=== PATIENT | male | born 1945 | race Native Hawaiian/Other Pacific Islander ===

== ENCOUNTER 2016-06-15 02:16 | Emergency (ER) | payer MEDICARE, OTHER ==
[~2016-06-15] VITALS: Ht 170.2 cm; Wt 75.0 kg
[~2016-06-15 02:16] MED LIST: AMAN100T PO; ASPI81 PO; BACL10TA PO; BISA5TAB PO; BRIM0.2S; IRON325T2 PO; NAPR220C2 PO; PRIL40CA PO; PROP1TAB67 PO; REQU2TAB3 PO; SINE10100 PO; TAB-TAB PO; VITA400C58 PO; ZOLO25TA PO
[2016-06-15 02:17] VITALS: BP 169/82; PULSE 71; RESP 18; TEMP 98.1; O2SAT 96
[2016-06-15] MEDS ORDERED: AMAN100C18 PO (02:28)
[2016-06-15] MEDS ORDERED: BRIM0.2S4 RIGHT EYE (02:28)
[2016-06-15] MEDS ORDERED: MULT1TAB85 PO (02:29)
[2016-06-15] MEDS ORDERED: CARB25TA12 PO (02:29)
[2016-06-15] MEDS ORDERED: ENTA1TAB PO (02:30)
[2016-06-15] MEDS ORDERED: TETANUS/DIPHTHERIA TOXOID ADULT 0.5 ML VIAL IM ONE (02:30)
[2016-06-15] MEDS ORDERED: GABA100C4 PO (02:30)
[2016-06-15] MEDS ORDERED: OMEP40CA2 PO (02:31)
[2016-06-15] MEDS ORDERED: SERT-132 PO (02:31)
[2016-06-15] MEDS ORDERED: GENTGEL EACH EYE (02:31)
[2016-06-15] MEDS ORDERED: ROPI2TAB PO (02:32)
[2016-06-15] MEDS ORDERED: ASPI81TA81 (02:32)
[2016-06-15] MEDS ORDERED: MEDI220T PO (02:33)
[2016-06-15] MEDS ORDERED: FLEE5TAB PO (02:33)
[2016-06-15] MEDS ORDERED: MILKSUS PO (02:33)
[2016-06-15] MEDS ORDERED: ACET325T PO (02:33)
--- NOTE | 2016-06-15 03:01 | RADRPT ---
EXAM DATE/TIME: 06/15/2016 02:37 [facility] COMPARISON: CT BRAIN W/O CONTRAST, July 20, 2015, 8:32. INDICATIONS : Fall. Right supraorbital contusion with laceration. RADIATION DOSE: 40.33 CTDIvol (mGy) MEDICAL HISTORY : Cardiovascular disease. Hypertension. Parkinsons. SURGICAL HISTORY : Appendectomy. Brain stimulator ENCOUNTER: Initial ACUITY: 1 day PAIN SCALE: 2/10 LOCATION: Left cranial TECHNIQUE: Multiple contiguous axial images were obtained of the head. Using automated exposure control and adj ustment of the mA and/or kV according to patient size, radiation dose was kept as low as reasonably a chievable to obtain optimal diagnostic quality images. FINDINGS: CEREBRUM: Neurostimulator leads are seen extending from the frontal regions towards the cerebral peduncles. The ventricles and cortical sulci are mildly widened. No evidence of midline shift, mass lesion, hemorr barbi or acute infarction. No extra-axial fluid collections are seen. POSTERIOR FOSSA: The cerebellum and brainstem are intact. The 4th ventricle is midline. The cerebellopontine angle i s unremarkable. EXTRACRANIAL: The visualized portion of the orbits is intact. There is right frontal scalp swelling.. SKULL: The calvaria is intact. No evidence of skull fracture. CONCLUSION: 1. No acute intracranial abnormality. 2. Right frontal scalp swelling. Jose Thorne MD on June 15, 2016 at 2:58 Board Certified Radiologist. This report was verified electronically.
--- NOTE | 2016-06-15 03:13 | PD ---
HPI Chief Complaint: Laceration/Skin Injury Time Seen by Provider: 02:20 Travel History International Travel<30 days: No Contact w/Intl Traveler<30days: No Traveled to known affect area: No History of Present Illness HPI The patient 70 years old. He arrives after an accidental fall out of bed. Reportedly he rolled over and then fell to the ground. He struck his right forehead/supraorbital ridge upon the ground causing a laceration bleeding. Sudden onset constant burning pain also reported. No loss of consciousness, visual change, nausea or vomiting. Patient takes aspirin. He is not sure of when he most recently received a tetanus shot. PFSH Past Medical History Cancer: No Cardiovascular Problems: Yes High Cholesterol: Yes Endocrine: No Gastrointestinal Disorders: Yes Genitourinary: No Hypertension: Yes Implanted Vascular Access Dvce: Yes Medical other: Yes (last week brainstimulator battery changed) Musculoskeletal: Yes Neurologic: No Parkinson's Disease: Yes Psychiatric: No Reproductive: No Respiratory: No Tetanus Vaccination: Unknown Influenza Vaccination: No Past Surgical History Appendectomy: Yes Body Medical Devices: BRAIN STIMULATOR Eye Surgery: Yes (LASER SURGERY TODAY ON RIGHT EYE) Neurologic Surgery: Yes (BACK SURGERY X2, BRAIN STIMUALTOR) Other Surgery: Yes Social History Alcohol Use: No Tobacco Use: No Substance Use: No Allergies-Medications (Allergen,Severity, Reaction): Coded Allergies: No Known Allergies (Verified , 06/15/16) Reported Meds & Prescriptions Reported Meds & Active Scripts Active Reported Naproxen Sodium 220 Mg Tab 220 Mg PO BID PRN Milk of Magnesia Liq (Magnesium Hydroxide) 400 Mg/5 Ml Susp 60 Ml PO DAILY PRN Bisacodyl EC (Bisacodyl) 5 Mg Tabec 5 Mg PO DAILY PRN Acetaminophen 325 Mg Tab 325 Mg PO Q4-6H PRN Ropinirole 2 Mg Tab 2 Mg PO BID Aspir-81 (Aspirin) 81 Mg Tabdr Sertraline (Sertraline HCl) 50 Mg Tab 50 Mg PO DAILY Omeprazole 40 Mg Cap 40 Mg PO DAILY Genteal Opth Gel (Carboxymethylcellu Sod/Hypromellose) 0.25-0.3% Gel 2 Drop EACH EYE Q4H PRN Gabapentin 100 Mg Cap 100 Mg PO BID Entacapone 200 Mg Tab 200 Mg PO BID administered concomitantly with each levodopa/carbidopa dose Multivitamin Men (Multiple Vitamins W/ Minerals) 1 Tab Tab 1 Tab PO DAILY Carbidopa-Levodopa 25-250 Mg Tab 1 Tab PO Q8HR Brimonidine Opth Drops (Brimonidine Tartrate) 0.2% Soln 1 Drop RIGHT EYE BID Amantadine (Amantadine HCl) 100 Mg Cap 100 Mg PO TID Review of Systems Except as stated in HPI: all other systems reviewed are Neg Physical Exam Narrative GENERAL: 70 yo M, well-nourished well-developed, no acute distress SKIN: Warm and dry. HEAD: Minimal contusion about the supraorbital ridge. Normocephalic. EYES: Pupils equal and round. No scleral icterus. No injection or drainage. On the superior aspect of the right upper eyelid laterally there is a 2 cm linear horizontal laceration approximately 2 mm wide and about 5 mm deep. ENT: No nasal bleeding or discharge. Mucous membranes pink and moist. NECK: Trachea midline. No JVD. CARDIOVASCULAR: Regular rate and rhythm. No murmur appreciated. RESPIRATORY: No accessory muscle use. Clear to auscultation. Breath sounds equal bilaterally. GASTROINTESTINAL: Abdomen soft, non-tender, nondistended. Hepatic and splenic margins not palpable. MUSCULOSKELETAL: No obvious deformities. No clubbing. No cyanosis. No edema. NEUROLOGICAL: Awake and alert. No obvious cranial nerve deficits. Motor grossly within normal limits. Normal speech. PSYCHIATRIC: Appropriate mood and affect; insight and judgment normal. Data Data Last Documented VS Vital Signs Date Time Temp Pulse Resp B/P Pulse Ox O2 Delivery O2 Flow Rate FiO2 06/15/16 02:17 98.1 71 18 169/[address] Brain W/O Iv Contrast(Rout) (06/15/16 02:20) Tetanus/Diphtheria Tox Adult (Tetanus/Di (06/15/16 02:30) MDM Medical Decision Making Medical Screen Exam Complete: Yes Emergency Medical Condition: Yes Medical Record Reviewed: Yes Differential Diagnosis Intracranial hemorrhage, contusion, laceration Narrative Course Last [address] 06/15/16 0220 Signed Impressions: Service Date/Time: May 02:37 - CONCLUSION: 1. No acute intracranial abnormality. 2. Right frontal scalp swelling. Jose Thorne MD Right upper eyelid laceration repaired w Dermabond by the undersigned. Pt has rested comfortably throughout ER stay. He is ready for discharge. Diagnosis Primary Impression: Fall Qualified Code: W19.XXXA - Fall, initial encounter Additional Impressions: Contusion Qualified Code: S00.03XA - Contusion of scalp, initial encounter Eyelid laceration, right Qualified Code: S01.111A - Eyelid laceration, right, initial encounter Referrals: Luz Dillon MD 1 day Additional Instructions: You have a choice when it comes to health care, and we are glad that you chose [facility]. Hopefully, we have met your expectations on today's visit. You are welcome to return to [facility] at any time, as we are committed to meeting the health care needs of our community. Med/Other Pt SpecificInfo: No Change to Meds Disposition: 01 DISCHARGE HOME Condition: Sergio Garrett MD Jun 15, 2016 03:12
== END 2016-06-15 06:36 | disposition home or self-care (01) ==
LOC: NEPC 02:16
DX: S01.111A Laceration without foreign body of right eyelid and periocular area, initial encounter (principal); S00.03XA Contusion of scalp, initial encounter; I10 Essential (primary) hypertension; G20 Parkinson's disease; E78.00 Pure hypercholesterolemia, unspecified; Z23 Encounter for immunization; Z79.82 Long term (current) use of aspirin; Z86.79 Personal history of other diseases of the circulatory system; Z87.19 Personal history of other diseases of the digestive system; Z87.39 Personal history of other diseases of the musculoskeletal system and connective tissue; W06.XXXA Fall from bed, initial encounter
CPT/HCPCS: 12011; 70450; 90471; 90714

== ENCOUNTER 2017-07-20 14:28 | Inpatient (IN) | payer MEDICARE, MEDICAID ==
[~2017-07-20] VITALS: Ht 170.2 cm; Wt 72.0 kg
[~2017-07-20 14:28] MED LIST changes: +ACET325T PO; +AMAN100C18 PO; -AMAN100T PO; -ASPI81 PO; +ASPI81TA81; -BACL10TA PO; -BISA5TAB PO; -BRIM0.2S; +BRIM0.2S4 RIGHT EYE; +CARB25TA12 PO; +ENTA1TAB PO; +FLEE5TAB PO; +GABA100C4 PO; +GENTGEL EACH EYE; -IRON325T2 PO; +MEDI220T PO; +MILKSUS PO; +MULT1TAB85 PO; -NAPR220C2 PO; +OMEP40CA2 PO; -PRIL40CA PO; -PROP1TAB67 PO; -REQU2TAB3 PO; +ROPI2TAB PO; +SERT-132 PO; -SINE10100 PO; -TAB-TAB PO; -VITA400C58 PO; -ZOLO25TA PO
[2017-07-20 14:41] VITALS: BP 116/56; PULSE 82; RESP 20; TEMP 98.1; O2SAT 99
--- NOTE | 2017-07-20 14:43 | PD ---
HPI Chief Complaint: General Weakness Time Seen by Provider: 14:42 Travel History International Travel<30 days: No Contact w/Intl Traveler<30days: No Traveled to known affect area: No History of Present Illness HPI 71-year-old male with history of Parkinson's disease, hypertension, presents emergency department from his residential facility for evaluation of altered mental status and a low hemoglobin on today's labs. The patient is accompanied by his who states that he has been acting differently over the last 2 days. Patient is a poor historian. He is very difficult to understand. He does tell me he has upper abdominal pain. He has had no fever or chills. His states he has been eating less and losing weight. He has not been vomiting. He has not had f difficulty with bowel movements or voids. It is unknown if the patient has had black tarry or shorty red stools. No other symptoms to report. PFSH Past Medical History Cancer: No Cardiovascular Problems: Yes High Cholesterol: Yes Endocrine: No Gastrointestinal Disorders: Yes Genitourinary: No Hypertension: Yes Implanted Vascular Access Dvce: Yes Musculoskeletal: Yes Neurologic: No Parkinson's Disease: Yes Psychiatric: No Reproductive: No Respiratory: No Past Surgical History Appendectomy: Yes Body Medical Devices: BRAIN STIMULATOR Eye Surgery: Yes (LASER SURGERY TODAY ON RIGHT EYE) Neurologic Surgery: Yes (BACK SURGERY X2, BRAIN STIMUALTOR) Other Surgery: Yes Social History Alcohol Use: No Tobacco Use: No Substance Use: No Allergies-Medications (Allergen,Severity, Reaction): Coded Allergies: No Known Allergies (Verified Allergy, Unknown, 07/20/17) Reported Meds & Prescriptions Reported Meds & Active Scripts Active Reported Flagyl (Metronidazole) 250 Mg Tab 250 Mg PO Q8HR Zantac (Ranitidine HCl) 150 Mg Tab 150 Mg PO BID [maalox suspension ] PO Q12HR Jordan (Hydrocodone-Acetaminophen) 5 Mg-325 Mg Tab 1 Tab PO BID Tums (Calcium Carbonate (Antacid)) 500 Mg Chew 500 Mg CHEW TID PRN Lisinopril 2.5 Mg Tab 2.5 Mg PO DAILY Multiple Vitamin 1 Tab 1 Tab PO DAILY Amantadine (Amantadine HCl) 100 Mg Tab 100 Mg PO DAILY Miralax Powder (Polyethylene Glycol 3350 Powder) 17 Gm Powd 17 Gm PO HS Mix and dissolve one measuring cap-ful (17 grams) in water or juice. Docusate Sodium 100 Mg Cap 100 Mg PO BID Ropinirole 2 Mg Tab 2 Mg PO BID Aspir-81 (Aspirin) 81 Mg Tabdr Sertraline (Sertraline HCl) 50 Mg Tab 50 Mg PO DAILY Omeprazole 40 Mg Cap 40 Mg PO DAILY Gabapentin 100 Mg Cap 300 Mg PO Q8HR Entacapone 200 Mg Tab 200 Mg PO DAILY administered concomitantly with each levodopa/carbidopa dose Carbidopa-Levodopa 25-250 Mg Tab 1 Tab PO Q8HR Review of Systems Except as stated in HPI: all other systems reviewed are Neg Physical Exam Narrative GENERAL: Well-nourished male patient, lying in bed, in no acute distress. SKIN: Focused skin assessment warm/dry. HEAD: Atraumatic. Normocephalic. EYES: Pupils equal and round. No scleral icterus. No injection or drainage. ENT: No nasal bleeding or discharge. Mucous membranes pink and moist. NECK: Trachea midline. No JVD. CARDIOVASCULAR: Regular rate and rhythm. No murmur appreciated. RESPIRATORY: No accessory muscle use. Clear to auscultation. Breath sounds equal bilaterally. GASTROINTESTINAL: Abdomen soft, nondistended. Epigastric tenderness to palpation. Hepatic and splenic margins not palpable. RECTAL EXAM: No masses no masses. Slight tenderness. Stool is black. MUSCULOSKELETAL: No obvious deformities. No clubbing. No cyanosis. No edema. NEUROLOGICAL: Awake and alert. No obvious cranial nerve deficits. Motor grossly within normal limits. Difficult to understand speech. Data Data Last Documented VS Vital Signs Date Time Temp Pulse Resp B/P (MAP) Pulse Ox O2 Delivery O2 Flow Rate FiO2 07/20/17 15:33 Room Air 07/20/17 14:43 80 20 99 07/20/17 14:41 98.1 116/56 (76) Orders Orders Complete Blood Count With Diff (07/20/17 14:52) Comprehensive Metabolic Panel (07/20/17 14:52) Lipase (07/20/17 14:52) Prothrombin Time / Inr (Pt) (07/20/17 14:52) Act Partial Throm Time (Ptt) (07/20/17 14:52) Urinalysis - C+S If Indicated (07/20/17 14:52) Type And Screen (07/20/17 14:52) Ecg Monitoring (07/20/17 14:52) Iv Access Insert/Monitor (07/20/17 14:52) Oximetry (07/20/17 14:52) Pantoprazole Inj (Protonix Inj) (07/20/17 15:00) Sodium Chloride 0.9% Flush (Ns Flush) (07/20/17 15:00) Sodium Chloride 0.9... W/Pantoprazole In (07/20/17 15:53) Red Blood Cells (Rbc) (07/20/17 15:53) Blood Product Administration (07/20/17 15:53) Sodium Chlor 0.9% 250 Ml Inj (Ns 250 Ml (07/20/17 16:00) Labs Laboratory Tests Test 07/20/17 14:10 White Blood Count 13.0 TH/MM3 Red Blood Count 2.38 MIL/MM3 Hemoglobin 7.0 GM/DL Hematocrit 20.9 % Mean Corpuscular Volume 87.8 FL Mean Corpuscular Hemoglobin 29.5 PG Mean Corpuscular Hemoglobin Concent 33.6 % Red Cell Distribution Width 14.5 % Platelet Count 383 TH/MM3 Mean Platelet Volume 8.1 FL Neutrophils (%) (Auto) 73.5 % Lymphocytes (%) (Auto) 17.7 % Monocytes (%) (Auto) 8.3 % Eosinophils (%) (Auto) 0.2 % Basophils (%) (Auto) 0.3 % Neutrophils # (Auto) 9.5 TH/MM3 Lymphocytes # (Auto) 2.3 TH/MM3 Monocytes # (Auto) 1.1 TH/MM3 Eosinophils # (Auto) 0.0 TH/MM3 Basophils # (Auto) 0.0 TH/MM3 CBC Comment DIFF FINAL Differential Comment Prothrombin Time 10.7 SEC Prothromb Time International Ratio 1.1 RATIO Activated Partial Thromboplast Time 27.1 SEC Blood Urea Nitrogen 30 MG/DL Creatinine 1.11 MG/DL Random Glucose 119 MG/DL Total Protein 7.2 GM/DL Albumin 3.0 GM/DL Calcium Level 8.6 MG/DL Alkaline Phosphatase 57 U/L Aspartate Amino Transf (AST/SGOT) 17 U/L Alanine Aminotransferase (ALT/SGPT) 9 U/L Total Bilirubin 0.4 MG/DL Sodium Level 139 MEQ/L Potassium Level 3.9 MEQ/L Chloride Level 105 MEQ/L Carbon Dioxide Level 26.3 MEQ/L Anion Gap 8 MEQ/L Estimat Glomerular Filtration Rate 65 ML/MIN Lipase 67 U/L [facility] Medical Decision Making Medical Screen Exam Complete: Yes Emergency Medical Condition: Yes Medical Record Reviewed: Yes Differential Diagnosis GI bleed versus electrolyte abnormality versus intracranial etiology Narrative Course 71-year-old male presents emergency department for evaluation of altered mental status and a low hemoglobin. Patient appears nontoxic. His vital signs are stable. He does have Hemoccult positive stool that is black. Patient reports epigastric pain. Protonix drip is started. Lab work is drawn. Laboratory Tests Test 07/20/17 14:10 White Blood Count 13.0 TH/MM3 Red Blood Count 2.38 MIL/MM3 Hemoglobin 7.0 GM/DL Hematocrit 20.9 % Mean Corpuscular Volume 87.8 FL Mean Corpuscular Hemoglobin 29.5 PG Mean Corpuscular Hemoglobin Concent 33.6 % Red Cell Distribution Width 14.5 % Platelet Count 383 TH/MM3 Mean Platelet Volume 8.1 FL Neutrophils (%) (Auto) 73.5 % Lymphocytes (%) (Auto) 17.7 % Monocytes (%) (Auto) 8.3 % Eosinophils (%) (Auto) 0.2 % Basophils (%) (Auto) 0.3 % Neutrophils # (Auto) 9.5 TH/MM3 Lymphocytes # (Auto) 2.3 TH/MM3 Monocytes # (Auto) 1.1 TH/MM3 Eosinophils # (Auto) 0.0 TH/MM3 Basophils # (Auto) 0.0 TH/MM3 CBC Comment DIFF FINAL Differential Comment Prothrombin Time 10.7 SEC Prothromb Time International Ratio 1.1 RATIO Activated Partial Thromboplast Time 27.1 SEC Blood Urea Nitrogen 30 MG/DL Creatinine 1.11 MG/DL Random Glucose 119 MG/DL Total Protein 7.2 GM/DL Albumin 3.0 GM/DL Calcium Level 8.6 MG/DL Alkaline Phosphatase 57 U/L Aspartate Amino Transf (AST/SGOT) 17 U/L Alanine Aminotransferase (ALT/SGPT) 9 U/L Total Bilirubin 0.4 MG/DL Sodium Level 139 MEQ/L Potassium Level 3.9 MEQ/L Chloride Level 105 MEQ/L Carbon Dioxide Level 26.3 MEQ/L Anion Gap 8 MEQ/L Estimat Glomerular Filtration Rate 65 ML/MIN Lipase 67 U/L Patient's hemoglobin is 7. 1 unit packed red blood cells as ordered here in the emergency department for transfusion. Patient will be admitted to the hospitalist service for further evaluation. Diagnosis Primary Impression: GI bleed Qualified Codes: K92.2 - Gastrointestinal hemorrhage, unspecified Admitting Information Admitting Physician Requests: Observation Condition: Stable Ruthy Holland Jul 20, 2017 14:43
[2017-07-20] MEDS ORDERED: SODIUM CHLORIDE 0.9% FLUSH 10 ML FLUSH IVF PRN (15:00)
[2017-07-20] MEDS ORDERED: PANTOPRAZOLE SODIUM 40 MG VIAL IVP ONE (15:00)
[2017-07-20 15:39] LABS: AUTOMATED NEUTROPHIL # 9.5 TH/MM3 (1.8-7.7); BASOPHIL % 0.3 % (0.0-2.0); EOSINOPHIL % 0.2 % (0.0-4.0); LYMPH % 17.7 % (9.0-44.0); LYMPHOCYTE # 2.3 TH/MM3 (1.0-4.8); MEAN CELL VOLUME 87.8 FL (80.0-100.0); MEAN CORPUSCULAR HEMOGLOBIN 29.5 PG (27.0-34.0); MEAN CORPUSCULAR HGB CONC 33.6 % (32.0-36.0); MEAN PLATELET VOLUME 8.1 FL (7.0-11.0); MONO % 8.3 % (0.0-8.0); MONOCYTE # 1.1 TH/MM3 (0-0.9); NEUT % 73.5 % (16.0-70.0); PLATELET COUNT 383 TH/MM3 (150-450); RED BLOOD COUNT 2.38 MIL/MM3 (4.50-5.90); RED CELL DISTRIBUTION WIDTH 14.5 % (11.6-17.2)
[2017-07-20] MEDS ORDERED: LISI2.5T3 PO (15:50)
[2017-07-20] MEDS ORDERED: AMAN100T PO (15:50)
[2017-07-20] MEDS ORDERED: MAALOX PO (15:50)
[2017-07-20] MEDS ORDERED: NORC5TAB PO (15:50)
[2017-07-20] MEDS ORDERED: DOCU100C15 PO (15:50)
[2017-07-20] MEDS ORDERED: MIRA3350 PO (15:50)
[2017-07-20] MEDS ORDERED: METR250 PO (15:50)
[2017-07-20] MEDS ORDERED: ZANT150T2 PO (15:50)
[2017-07-20] MEDS ORDERED: TUMS500C CHEW (15:50)
[2017-07-20] MEDS ORDERED: MULTTAB67 PO (15:50)
[2017-07-20 15:53] LABS: HEMATOCRIT 20.9 % (39.0-51.0)
[2017-07-20] MEDS ORDERED: PANTOPRAZOLE INJ 80 MG in SODIUM CHLORIDE 0.9% INJ 100 ML IV SCH (15:53)
[2017-07-20 15:54] LABS: INTERNATIONAL NORMALIZED RATIO 1.1 RATIO; PROTHROMBIN TIME - PATIENT 10.7 SEC (9.8-11.6)
[2017-07-20 15:56] LABS: AST (GOT) 17 U/L (15-37); BICARBONATE 26.3 MEQ/L (21.0-32.0); BLOOD UREA NITROGEN 30 MG/DL (7-18); CALCIUM 8.6 MG/DL (8.5-10.1); CHLORIDE 105 MEQ/L (98-107); CREATININE 1.11 MG/DL (0.60-1.30); GLOMERULAR FILTRATION RATE 65 ML/MIN (>89); GLUCOSE,RANDOM 119 MG/DL (74-106); SODIUM (NA) 139 MEQ/L (136-145)
[2017-07-20 15:57] LABS: ALT (GPT) 9 U/L (12-78)
[2017-07-20 15:59] LABS: ALKALINE PHOSPHATASE 57 U/L (45-117); TOTAL BILIRUBIN ADULT 0.4 MG/DL (0.2-1.0); TOTAL PROTEIN 7.2 GM/DL (6.4-8.2)
[2017-07-20] MEDS ORDERED: SODIUM CHLOR 0.9% 250 ML INJ 250 ML IV ONE (16:00)
[2017-07-20 17:21] VITALS: BP 100/54; PULSE 77; RESP 12; TEMP 98.5; O2SAT 98
[2017-07-20 17:35] VITALS: BP 97/59; PULSE 77; RESP 18; TEMP 98.4; O2SAT 99
[2017-07-20] MEDS ORDERED: SODIUM CHLOR 0.9% 1000 ML INJ 1,000 ML IV SCH (17:39)
[2017-07-20] MEDS ORDERED: SENNOSIDES 8.6 MG TAB PO PRN (17:45)
[2017-07-20] MEDS ORDERED: LACTULOSE SYRUP 20 GM/30 ML CUP PO PRN (17:45)
[2017-07-20] MEDS ORDERED: MAGNESIUM HYDROXIDE SUSP 30 ML CUP PO PRN (17:45)
[2017-07-20] MEDS ORDERED: NALOXONE HCL 0.4 MG/ML AMP IV PUSH PRN (17:45)
[2017-07-20] MEDS ORDERED: BISACODYL 10 MG SUPP RECTAL PRN (17:45)
[2017-07-20] MEDS ORDERED: ACETAMINOPHEN 325 MG TAB PO PRN (17:45)
[2017-07-20] MEDS ORDERED: SODIUM CHLORIDE 0.9% FLUSH 10 ML FLUSH IV FLUSH PRN (17:45)
[2017-07-20] MEDS ORDERED: ONDANSETRON HCL 4 MG/2 ML VIAL IVP PRN (17:45)
--- NOTE | 2017-07-20 17:59 | HHI.HP ---
HPI Service [facility] Primary Care Physician Popeye Mesa MD Admission Diagnosis AMS; GI BLEED Diagnoses: Chief Complaint: Acute GI bleed Travel History International Travel<30 Days: No Contact w/Intl Traveler <30 Da: No Traveled to Known Affected Are: No History of Present Illness Written by Moshe Solomon, acting as scribe for Dr. Bingham on 07/20/17 at 17:42. Patient is a 71 year old male who is a resident of a [facility]dc with primary medical history of severe Parkinson's disease with brain stimulator, HTN, HLD, chronic back pain who came into the hospital for evaluation of altered mental status and low hemoglobin on today's labs. Patient seen and examined today. States he came to the hospital because he has blood in his stool. Patient speech is severely garbled and barely understandable. States that his speech has been worsened by his Parkinson's disease. Most of the history is reviewed from prior visit to the hospital and collateral with other staff. Patient complains of abdominal pain 5/10, burning sensation, does not know what aggravates or relieves the pain. It does not radiate anywhere. Denies SOB/ dyspnea. Denies chest pain, palpitations, headaches, dizziness. Denies fevers, chills, n/v/d. Denies dysuria. Review of Systems Except as stated in HPI: all other systems reviewed are Neg Past Family Social History Past Medical History Pulled from EMR, as instructed by [facility] Parkinson's disease, history of deep brain stimulator High cholesterol Hypertension Chronic back pain with prior back surgeries Past Surgical History Pulled from EMR, as instructed by [facility] EGD/colonoscopy Fusion of his low back at L1 S1 Removal of a benign cyst of his lumbar spine Reported Medications Reported Meds & Active Scripts Active Reported Flagyl (Metronidazole) 250 Mg Tab 250 Mg PO Q8HR Zantac (Ranitidine HCl) 150 Mg Tab 150 Mg PO BID [maalox suspension ] PO Q12HR [place] (Hydrocodone-Acetaminophen) 5 Mg-325 Mg Tab 1 Tab PO BID Tums (Calcium Carbonate (Antacid)) 500 Mg Chew 500 Mg CHEW TID PRN Lisinopril 2.5 Mg Tab 2.5 Mg PO DAILY Multiple Vitamin 1 Tab 1 Tab PO DAILY Amantadine (Amantadine HCl) 100 Mg Tab 100 Mg PO DAILY Miralax Powder (Polyethylene Glycol 3350 Powder) 17 Gm Powd 17 Gm PO HS Mix and dissolve one measuring cap-ful (17 grams) in water or juice. Docusate Sodium 100 Mg Cap 100 Mg PO BID Ropinirole 2 Mg Tab 2 Mg PO BID Aspir-81 (Aspirin) 81 Mg Tabdr Sertraline (Sertraline HCl) 50 Mg Tab 50 Mg PO DAILY Omeprazole 40 Mg Cap 40 Mg PO DAILY Gabapentin 100 Mg Cap 300 Mg PO Q8HR Entacapone 200 Mg Tab 200 Mg PO DAILY administered concomitantly with each levodopa/carbidopa dose Carbidopa-Levodopa 25-250 Mg Tab 1 Tab PO Q8HR Allergies: Coded Allergies: No Known Allergies (Verified Allergy, Unknown, 07/20/17) Active Ordered Medications Current Medications Medications (Trade) Dose Ordered Sig/Gina Route Start Time Stop Time Status Last Admin (NS Flush) 2 ml UNSCH PRN IVF 07/20/17 15:00 07/20/17 15:09 Pantoprazole Sodium 80 mg/ Sodium Chloride 100 ml @ 10 mls/hr Q10H IV 07/20/17 15:53 07/20/17 17:06 Sodium Chloride 250 ml @ 15 mls/hr ONCE ONCE IV 07/20/17 16:00 07/21/17 08:39 07/20/17 17:23 Family History Pulled from EMR, as instructed by [facility]. Father coronary artery bypass grafting at the age of 78, mother with congestive heart failure. One brother with hypertension other siblings are healthy Social History Denies alcohol use Denies tobacco use Denies illicit drug use Physical Exam Vital Signs Vital Signs Date Time Temp Pulse Resp B/P (MAP) Pulse Ox O2 Delivery O2 Flow Rate FiO2 07/20/17 17:35 98.4 77 18 97/59 99 07/20/17 17:21 98.5 77 12 100/54 98 07/20/17 15:33 Room Air 07/20/17 14:43 80 20 99 Room Air 07/20/17 14:41 98.1 82 20 116/56 (76) 99 Physical Exam GENERAL: This is a well-nourished, well-developed patient, in no apparent distress. SKIN: Warm and dry. HEAD: Normocephalic. No temporal or scalp tenderness. EYES: Pupils equal round and reactive. Extraocular motions intact. No scleral icterus. No injection or drainage. ENT: Nose without bleeding. Throat without erythema. Uvula midline. Airway patent. NECK: Trachea midline. CARDIOVASCULAR: Regular rate and rhythm without murmurs, gallops, or rubs. RESPIRATORY: Clear to auscultation. Breath sounds equal bilaterally. No wheezes , rales, or rhonchi. GASTROINTESTINAL: Abdomen soft, nondistended. Mild tenderness to palpate midepigastric region bowel sounds active 4 MUSCULOSKELETAL: Extremities without clubbing, cyanosis, or edema. Stiff with ROM. NEUROLOGICAL: Awake and alert. Motor and sensory grossly within normal limits. Garbled speech. Laboratory Laboratory Tests Test 07/20/17 14:10 White Blood Count 13.0 Red Blood Count 2.38 Hemoglobin 7.0 Hematocrit 20.9 Mean Corpuscular Volume 87.8 Mean Corpuscular Hemoglobin 29.5 Mean Corpuscular Hemoglobin Concent 33.6 Red Cell Distribution Width 14.5 Platelet Count 383 Mean Platelet Volume 8.1 Neutrophils (%) (Auto) 73.5 Lymphocytes (%) (Auto) 17.7 Monocytes (%) (Auto) 8.3 Eosinophils (%) (Auto) 0.2 Basophils (%) (Auto) 0.3 Neutrophils # (Auto) 9.5 Lymphocytes # (Auto) 2.3 Monocytes # (Auto) 1.1 Eosinophils # (Auto) 0.0 Basophils # (Auto) 0.0 CBC Comment DIFF FINAL Differential Comment Prothrombin Time 10.7 Prothromb Time International Ratio 1.1 Activated Partial Thromboplast Time 27.1 Blood Urea Nitrogen 30 Creatinine 1.11 Random Glucose 119 Total Protein 7.2 Albumin 3.0 Calcium Level 8.6 Alkaline Phosphatase 57 Aspartate Amino Transf (AST/SGOT) 17 Alanine Aminotransferase (ALT/SGPT) 9 Total Bilirubin 0.4 Sodium Level 139 Potassium Level 3.9 Chloride Level 105 Carbon Dioxide Level 26.3 Anion Gap 8 Estimat Glomerular Filtration Rate 65 Lipase 67 Result Diagram: 07/20/17 1410 07/20/17 1410 Caprini VTE Risk Assessment Caprini VTE Risk Assessment: Mod/High Risk (score >= 2) VTE Pharm Contraindication: Active bleeding Caprini Risk Assessment Model Point Value = 1 Point Value = 2 Point Value = 3 Point Value = 5 Age 41-60 Minor surgery BMI > 25 kg/m2 Swollen legs Varicose veins or History of unexplained or recurrent spontaneous Oral contraceptives or hormone replacement Sepsis (< 1 month) Serious lung disease, including pneumonia (< 1 month) Abnormal pulmonary function Acute myocardial infarction Congestive heart failure (< 1 month) History of inflammatory bowel disease Medical patient at bed rest Age 61-74 Arthroscopic surgery Major open surgery (> 45 min) Laparoscopic surgery (> 45 min) Malignancy Confined to bed (> 72 hours) Immobilizing plaster cast Central venous access Age >= 75 History of VTE Family history of VTE Factor V Leiden Prothrombin [id number] Lupus anticoagulant Anticardiolipin antibodies Elevated serum homocysteine Heparin-induced thrombocytopenia Other congenital or acquired thrombophilia Stroke (< 1 month) Elective arthroplasty Hip, pelvis, or leg fracture Acute spinal cord injury (< 1 month) Prophylaxis Regimen Total Risk Factor Score Risk Level Prophylaxis Regimen 0-1 Low Early ambulation 2 Moderate Order ONE of the following: *Sequential Compression Device (SCD) *Heparin 5000 units SQ BID 3-4 Higher Order ONE of the following medications: *Heparin 5000 units SQ TID *Enoxaparin/Lovenox 40 mg SQ daily (WT < 150 kg, CrCl > 30 mL/min) *Enoxaparin/Lovenox 30 mg SQ daily (WT < 150 kg, CrCl > 10-29 mL/min) *Enoxaparin/Lovenox 30 mg SQ BID (WT < 150 kg, CrCl > 30 mL/min) AND/OR *Sequential Compression Device (SCD) 5 or more Highest Order ONE of the following medications: *Heparin 5000 units SQ TID (Preferred with Epidurals) *Enoxaparin/Lovenox 40 mg SQ daily (WT < 150 kg, CrCl > 30 mL/min) *Enoxaparin/Lovenox 30 mg SQ daily (WT < 150 kg, CrCl > 10-29 mL/min) *Enoxaparin/Lovenox 30 mg SQ BID (WT < 150 kg, CrCl > 30 mL/min) AND *Sequential Compression Device (SCD) Assessment and Plan Problem List: (1) GI bleed ICD Code: K92.2 - Gastrointestinal hemorrhage, unspecified Status: Acute (2) Parkinson disease ICD Code: G20 - Parkinson's disease Status: Acute (3) Hypertension ICD Code: I10 - Essential (primary) hypertension Status: Acute Assessment and Plan Patient is a 71 year old male who is a resident of a fdc with primary medical history of severe Parkinson's disease with brain stimulator, HTN, HLD, chronic back pain who came into the hospital for evaluation of altered mental status and low hemoglobin on today's labs. GI bleed -H&H 7.0/20.9 -Check stool for heme -GI consult appreciated recommend a -Protonix IV, 1 unit packed RBC, may need 2 units -Keep n.p.o. for now -IV fluids for hydration, avoid NSAIDs, aspirin -Monitor CBC Parkinson's disease -Severe parkinsonism, brain stimulator in place battery on the right subclavian area -Continue home medication once cleared by GI for PO HTN -Monitor BP trend for now. BP is on the low side secondary to hypovolemia/ anemia Anemia -Possibly secondary to blood loss, GI bleed -Check iron panel, ferritin -We will start iron supplementation if warranted DVT SCDs, hold off chemoprophylaxis for now Code Status Full code Discussed Condition With Patient, nursing, ED attending This note was transcribed by anastacio [ Moshe Solomon ]. I, Dr. Paras Bingham personally performed the history, physical exam, and medical decision making; and confirmed the accuracy of the information in the transcribed note. Authenticated by Dr. Paras Bingham on 07/20/17 at 19:05. Physician Certification 2 Midnight Certification Type: Admission for Inpatient Services Order for Inpatient Services The services are ordered in accordance with Medicare regulations or non- Medicare payer requirements, as applicable. In the case of services not specified as inpatient-only, they are appropriately provided as inpatient services in accordance with the 2-midnight benchmark. Estimated LOS (days): 2 days is the estimated time the patient will need to remain in the hospital, assuming treatment plan goals are met and no additional complications. Post-Hospital Plan: SNF Problem Qualifiers (1) GI bleed: Qualified Codes: K92.2 - Gastrointestinal hemorrhage, unspecified Moshe Martinez Jul 20, 2017 17:59 Paras Bingham MD Jul 20, 2017 19:05
[2017-07-20 18:32] LABS: % SATURATION IRON PROFILE 3.9 % (20-50); IRON (FE) 11 MCG/DL (65-175); TOTAL IRON BINDING CAPACITY 279 MCG/DL (250-450)
[2017-07-20 18:33] VITALS: BP 113/64; PULSE 74; RESP 18; O2SAT 99
[2017-07-20 18:34] LABS: FERRITIN 72 NG/ML (26-388)
[2017-07-20 18:53] LABS: AMORPHOUS SEDIMENT, URINE RARE; BACTERIA, URINE RARE /hpf; BILIRUBIN, URINE NEG (NEG); BLOOD, URINE NEG (NEG); GLUCOSE,URINE NEG (NEG); HYALINE CAST, URINE 6 /lpf (RARE); KETONE, URINE NEG (NEG); MUCUS URINE FEW /lpf (OCC); NITRITE,URINE NEG (NEG); URINE COLOR YELLOW (YELLW/STRAW); URINE LEUKOCYTE ESTERASE NEG (NEG)
[2017-07-20 20:11] VITALS: BP 110/59; PULSE 76; RESP 16; TEMP 98.8; O2SAT 99
[2017-07-20 22:43] VITALS: BP 118/62; PULSE 78; RESP 20; TEMP 98.2; O2SAT 97
[2017-07-21] MEDS: SODIUM CHLORIDE 0.9% FLUSH 10 ML FLUSH IV FLUSH SCH ×3 (02:29→22:39)
[2017-07-21] MEDS: PANTOPRAZOLE INJ 80 MG in SODIUM CHLORIDE 0.9% INJ 100 ML IV SCH ×3 (02:30→15:04)
[2017-07-21] MEDS: DOCUSATE SODIUM 50 MG/SENNA 8.6 MG TAB PO SCH ×3 (02:30→22:39)
[2017-07-21 02:53] VITALS: BP 143/67; PULSE 78; RESP 16; TEMP 97.6; O2SAT 99
[2017-07-21 07:07] LABS: AUTOMATED NEUTROPHIL # 7.2 TH/MM3 (1.8-7.7); BASOPHIL % 0.5 % (0.0-2.0); EOSINOPHIL # 0.1 TH/MM3 (0-0.4); EOSINOPHIL % 0.9 % (0.0-4.0); HEMATOCRIT 26.1 % (39.0-51.0); HEMOGLOBIN 8.8 GM/DL (13.0-17.0); LYMPH % 20.1 % (9.0-44.0); LYMPHOCYTE # 2.1 TH/MM3 (1.0-4.8); MEAN CELL VOLUME 86.1 FL (80.0-100.0); MEAN CORPUSCULAR HGB CONC 33.6 % (32.0-36.0); MEAN PLATELET VOLUME 8.2 FL (7.0-11.0); MONO % 8.3 % (0.0-8.0); MONOCYTE # 0.8 TH/MM3 (0-0.9); NEUT % 70.2 % (16.0-70.0); PLATELET COUNT 378 TH/MM3 (150-450); RED BLOOD COUNT 3.03 MIL/MM3 (4.50-5.90); RED CELL DISTRIBUTION WIDTH 14.9 % (11.6-17.2); WHITE BLOOD COUNT 10.3 TH/MM3 (4.0-11.0)
[2017-07-21 07:25] LABS: ALBUMIN 2.8 GM/DL (3.4-5.0); ALKALINE PHOSPHATASE 55 U/L (45-117); ALT (GPT) 23 U/L (12-78); AST (GOT) 11 U/L (15-37); BICARBONATE 27.3 MEQ/L (21.0-32.0); BLOOD UREA NITROGEN 19 MG/DL (7-18); CALCIUM 8.5 MG/DL (8.5-10.1); CHLORIDE 108 MEQ/L (98-107); CREATININE 0.88 MG/DL (0.60-1.30); GLOMERULAR FILTRATION RATE 86 ML/MIN (>89); GLUCOSE,RANDOM 95 MG/DL (74-106); SODIUM (NA) 142 MEQ/L (136-145); TOTAL BILIRUBIN ADULT 0.8 MG/DL (0.2-1.0); TOTAL PROTEIN 6.8 GM/DL (6.4-8.2)
[2017-07-21 08:07] VITALS: BP 130/60; PULSE 74; RESP 18; TEMP 98.2; O2SAT 98
[2017-07-21] MEDS: SODIUM CHLOR 0.9% 1000 ML INJ 1,000 ML IV SCH ×2 (08:32→22:43)
--- NOTE | 2017-07-21 08:37 | PD.CONS ---
HPI History of Present Illness This is a 71 year old male who presented to the emergency room on 07/20/17 with altered mental status and low hemoglobin. Patient's voice is very soft and muffled at times so communication is difficult. According to the record patient came from a [place] [facility] facility and had a low hemoglobin on today' s labs. accompanied patient to the emergency room and stated that he had been acting differently over the past 2 days. On exam patient had some mild upper gastric epigastric tenderness. He shakes his has no to nausea or vomiting but according to the record he has been eating less and losing weight unknown amounts and unknown timing. Patient shakes his head no to having any diarrhea but does note slight history of constipation and according to the record patient has been admitted in the past for fecal impaction. Hemoglobin lab on admission was 7, patient received 1 unit packed RBCs hemoglobin now 8.8. Currently patient is awake and can follow simple commands such as hand gripping. It is unknown last colonoscopy or endoscopy. (Kat Rizvi) [facility] Past Medical History Pulled from EMR Parkinson's disease, history of deep brain stimulator High cholesterol Hypertension Chronic back pain with prior back surgeries Past Surgical History Pulled from EMR, as instructed by [facility] EGD/colonoscopy Fusion of his low back at L1 S1 Removal of a benign cyst of his lumbar spine (Kat Rizvi) Coded Allergies: No Known Allergies (Verified Allergy, Unknown, 07/20/17) Medications Administered Medications Medications (Trade) Dose Ordered Sig/Gina Route PRN Reason Start Time Stop Time Status Last Admin Dose Admin Sodium Chloride 250 ml @ 15 mls/hr ONCE ONCE IV 07/20/17 16:00 07/21/17 08:39 07/20/17 17:23 Sodium Chloride (NS Flush) 2 ml BID IV FLUSH 07/20/17 21:00 07/21/17 02:29 Senna/Docusate Sodium (Melissa-Colace) 1 tab BID PO 07/20/17 21:00 07/21/17 02:30 Pantoprazole Sodium 80 mg/ Sodium Chloride 100 ml @ 10 mls/hr Q10H IV 07/21/17 03:00 07/21/17 02:30 Family History Pulled from EMR, as instructed by [facility] Father coronary artery bypass grafting at the age of 78, mother with congestive heart failure. One brother with hypertension other siblings are healthy Social History Denies alcohol use Denies tobacco use Denies illicit drug use (Kat Rizvi) Review of Systems Gastrointestinal: COMPLAINS OF: Abdominal pain (upper gastric) (Kat Rizvi) GI Exam Vitals I&O Vital Signs Date Time Temp Pulse Resp B/P (MAP) Pulse Ox O2 Delivery O2 Flow Rate FiO2 07/21/17 08:07 98.2 74 18 130/60 (83) 98 07/21/17 02:53 97.6 78 16 143/67 (92) 99 07/20/17 22:43 98.2 78 20 118/62 (80) 97 07/20/17 20:11 98.8 76 16 110/59 (76) 99 07/20/17 18:53 (80) 07/20/17 18:33 74 18 113/64 (80) 99 Room Air 07/20/17 17:35 98.4 77 18 97/59 99 07/20/17 17:21 98.5 77 12 100/54 98 07/20/17 15:33 Room Air 07/20/17 14:43 80 20 99 Room Air 07/20/17 14:41 98.1 82 20 116/56 (76) 99 I/O 07/20/17 07/20/17 07/20/17 07/21/17 07/21/17 07/21/17 07:00 15:00 23:00 07:00 15:00 23:00 Intake Total 10 ml Balance 10 ml Blood Product IV Normal Saline Flush 10 ml Laboratory Test 07/20/17 14:10 07/20/17 18:30 07/21/17 05:47 White Blood Count 13.0 TH/MM3 10.3 TH/MM3 Red Blood Count 2.38 MIL/MM3 3.03 MIL/MM3 Hemoglobin 7.0 GM/DL 8.8 GM/DL Hematocrit 20.9 % 26.1 % Mean Corpuscular Volume 87.8 FL 86.1 FL Mean Corpuscular Hemoglobin 29.5 PG 29.0 PG Mean Corpuscular Hemoglobin Concent 33.6 % 33.6 % Red Cell Distribution Width 14.5 % 14.9 % Platelet Count 383 TH/MM3 378 TH/MM3 Mean Platelet Volume 8.1 FL 8.2 FL Neutrophils (%) (Auto) 73.5 % 70.2 % Lymphocytes (%) (Auto) 17.7 % 20.1 % Monocytes (%) (Auto) 8.3 % 8.3 % Eosinophils (%) (Auto) 0.2 % 0.9 % Basophils (%) (Auto) 0.3 % 0.5 % Neutrophils # (Auto) 9.5 TH/MM3 7.2 TH/MM3 Lymphocytes # (Auto) 2.3 TH/MM3 2.1 TH/MM3 Monocytes # (Auto) 1.1 TH/MM3 0.8 TH/MM3 Eosinophils # (Auto) 0.0 TH/MM3 0.1 TH/MM3 Basophils # (Auto) 0.0 TH/MM3 0.0 TH/MM3 CBC Comment DIFF FINAL DIFF FINAL Differential Comment Prothrombin Time 10.7 SEC Prothromb Time International Ratio 1.1 RATIO Activated Partial Thromboplast Time 27.1 SEC Blood Urea Nitrogen 30 MG/DL 19 MG/DL Creatinine 1.11 MG/DL 0.88 MG/DL Random Glucose 119 MG/DL 95 MG/DL Total Protein 7.2 GM/DL 6.8 GM/DL Albumin 3.0 GM/DL 2.8 GM/DL Calcium Level 8.6 MG/DL 8.5 MG/DL Alkaline Phosphatase 57 U/L 55 U/L Aspartate Amino Transf (AST/SGOT) 17 U/L 11 U/L Alanine Aminotransferase (ALT/SGPT) 9 U/L 23 U/L Total Bilirubin 0.4 MG/DL 0.8 MG/DL Sodium Level 139 MEQ/L 142 MEQ/L Potassium Level 3.9 MEQ/L 3.8 MEQ/L Chloride Level 105 MEQ/L 108 MEQ/L Carbon Dioxide Level 26.3 MEQ/L 27.3 MEQ/L Anion Gap 8 MEQ/L 7 MEQ/L Estimat Glomerular Filtration Rate 65 ML/MIN 86 ML/MIN Iron Level 11 MCG/DL Total Iron Binding Capacity 279 MCG/DL Percent Iron Saturation 3.9 % Ferritin 72 NG/ML Lipase 67 U/L Urine Color YELLOW Urine Turbidity CLEAR Urine pH 6.0 Urine Specific [place] 1.029 Urine Protein TRACE mg/dL Urine Glucose (UA) NEG mg/dL Urine Ketones NEG mg/dL Urine Occult Blood NEG Urine Nitrite NEG Urine Bilirubin NEG Urine Urobilinogen LESS THAN 2.0 MG/DL Urine Leukocyte Esterase NEG Urine RBC 1 /hpf Urine WBC 5 /hpf Urine Amorphous Sediment RARE Urine Bacteria RARE /hpf Urine Hyaline Casts 6 /lpf Urine Mucus FEW /lpf Microscopic Urinalysis Comment CULT NOT INDICATED Physical Examination HEENT: Pupils round and reactive to light ,equal; normocephalic; atraumatic; no jaundice. No obvious oral secretions NECK: Neck is supple, no JVD, no lymphadenopathy. CHEST: Chest is clear to auscultation and percussion. CARDIAC: Regular rate and rhythm ABDOMEN: Soft, nondistended, mild gastric tenderness; no hepatosplenomegaly; bowel sounds are present in all four quadrants. EXTREMITIES: No clubbing, cyanosis, or edema. SKIN: Normal; no rash; no jaundice. PROPERTY SUPERVISOR: Speech is mumbled at times very soft, poor historian (Kat Rizvi) Assessment and Plan Assessment: (1) GI bleed ICD Codes: K92.2 - Gastrointestinal hemorrhage, unspecified Status: Acute Plan Symptomatic anemia and low iron saturation and iron levels on labs, probable iron deficiency anemia. Unknown dark tarry stools, hematemesis or melena No current nausea or vomiting Positive gastric discomfort to light palpation. Listed in the patient's old record is EGD and colonoscopy will research records. According to the nurse there is a daughter who is the POA. Plan Keep patient nothing by mouth for now PPI IV drip Anti-emetics Bowel regimen with stool softeners and laxatives as needed EGD, TBA Supportive care Monitor labs especially with hemoglobin Transfuse as necessary Patient was seen per myself and Dr. Delgado, note was written on his behalf (Kat Rizvi) Physician Comments Patient presenting with iron deficiency anemia, melena, epigastric pain Never had any endoscopy or colonoscopy in the past Agree with current supportive measures Monitor labs and transfuse as needed Plan for an EGD and a colonoscopy on Sunday (Galileo Delgado MD) Problem Qualifiers (1) GI bleed: Qualified Codes: K92.2 - Gastrointestinal hemorrhage, unspecified Kat Rizvi Jul 21, 2017 08:37 Galileo Delgado MD Jul 21, 2017 15:41
[2017-07-21] MEDS ORDERED: PANTOPRAZOLE SODIUM 40 MG VIAL IV PUSH SCH (09:00)
[2017-07-21] MEDS: ENTACAPONE 200 MG PO SCH (12:00)
[2017-07-21 12:26] VITALS: BP 136/67; PULSE 70; RESP 18; TEMP 97.7; O2SAT 96
[2017-07-21] MEDS: CARBIDOPA/LEVODOPA 25 MG/250 MG TAB PO SCH ×2 (12:40→22:39)
[2017-07-21] MEDS: AMANTADINE HCL 100 MG CAP PO SCH (12:40)
[2017-07-21 17:09] VITALS: BP 119/61; PULSE 74; RESP 18; TEMP 98.4; O2SAT 97
--- NOTE | 2017-07-21 19:06 | HHI.PR ---
Subjective Remarks Patient and seen this morning. Patient reports that Parkinson's stiffness is worse. Denies any chest pain or shortness of breath. He reports dark stools for some time. None today. Denies any bleeding. Objective Vital Signs Date Time Temp Pulse Resp B/P (MAP) Pulse Ox O2 Delivery O2 Flow Rate FiO2 07/21/17 17:09 98.4 74 18 119/61 (80) 97 07/21/17 12:26 97.7 70 18 136/67 (90) 96 07/21/17 08:07 98.2 74 18 130/60 (83) 98 07/21/17 02:53 97.6 78 16 143/67 (92) 99 07/20/17 22:43 98.2 78 20 118/62 (80) 97 07/20/17 20:11 98.8 76 16 110/59 (76) 99 I/O 07/20/17 07/20/17 07/20/17 07/21/17 07/21/17 07/21/17 07:00 15:00 23:00 07:00 15:00 23:00 Intake Total 10 ml Balance 10 ml Blood Product IV Normal Saline Flush 10 ml Result Diagram: 07/21/17 1131 07/21/17 0547 Objective Remarks GENERAL: patient sitting up in bed. Appears comfortable SKIN: Warm and dry. HEAD: Normocephalic. EYES: No scleral icterus. No injection or drainage. NECK: Supple, trachea midline. No JVD. CARDIOVASCULAR: Regular rate and rhythm without murmurs, gallops, or rubs. RESPIRATORY: Breath sounds equal bilaterally. No accessory muscle use. GASTROINTESTINAL: Abdomen soft, non-tender, nondistended. MUSCULOSKELETAL: No cyanosis, or edema. neurologic. Patient somewhat stiff, however able to move as needed. Speech intact. BACK: Nontender without obvious deformity. No CVA tenderness. A/P Assessment and Plan Patient is a 71 year old male who is a resident of a snf with primary medical history of severe Parkinson's disease with brain stimulator, HTN, HLD, chronic back pain who came into the hospital for evaluation of altered mental status and low hemoglobin on today's labs. GI bleed -H&H 7.0/20.9 -Check stool for heme -GI consult appreciated recommend a -Protonix IV, 1 unit packed RBC, may need 2 units -Keep n.p.o. for now -IV fluids for hydration, avoid NSAIDs, aspirin -Monitor CBC = Plan for EGD/colonoscopy tomorrow. Appreciate GI assistance. Parkinson's disease -Severe parkinsonism, brain stimulator in place battery on the right subclavian area -Continue home medication once cleared by GI for PO HTN -Monitor BP trend for now. BP is on the low side secondary to hypovolemia/ anemia Anemia -Possibly secondary to blood loss, GI bleed -Check iron panel, ferritin -We will start iron supplementation if warranted = Continue to monitor hemoglobin. A 8.8 today after transfusion. 7.0 on admission. DVT SCDs, hold off chemoprophylaxis for now Discharge Planning pending GI clearance. Mingo Bueno MD Jul 21, 2017 19:06
[2017-07-21 19:43] VITALS: BP 123/67; PULSE 69; RESP 16; TEMP 98.2; O2SAT 97
[2017-07-21 23:19] VITALS: BP 121/64; PULSE 16; RESP 16; TEMP 98.6; O2SAT 95
[2017-07-22] MEDS: PANTOPRAZOLE INJ 80 MG in SODIUM CHLORIDE 0.9% INJ 100 ML IV SCH ×3 (02:08→19:17)
[2017-07-22 03:20] VITALS: BP 129/65; PULSE 70; RESP 16; TEMP 97.7; O2SAT 97
[2017-07-22] MEDS: CARBIDOPA/LEVODOPA 25 MG/250 MG TAB PO SCH ×3 (06:04→21:30)
[2017-07-22 07:42] VITALS: BP 167/79; PULSE 79; RESP 18; TEMP 98.2; O2SAT 94
[2017-07-22 08:31] LABS: HEMATOCRIT 24.7 % (39.0-51.0); HEMOGLOBIN 8.4 GM/DL (13.0-17.0); MEAN CELL VOLUME 85.2 FL (80.0-100.0); MEAN PLATELET VOLUME 8.3 FL (7.0-11.0); PLATELET COUNT 381 TH/MM3 (150-450); WHITE BLOOD COUNT 9.5 TH/MM3 (4.0-11.0)
[2017-07-22 08:50] LABS: ALBUMIN 2.6 GM/DL (3.4-5.0); BICARBONATE 25.4 MEQ/L (21.0-32.0); CALCIUM 8.4 MG/DL (8.5-10.1); CREATININE 0.81 MG/DL (0.60-1.30); MAGNESIUM 2.3 MG/DL (1.5-2.5); PHOSPHORUS 2.5 MG/DL (2.5-4.9)
[2017-07-22] MEDS: SODIUM CHLORIDE 0.9% FLUSH 10 ML FLUSH IV FLUSH SCH ×2 (09:00→21:30)
--- NOTE | 2017-07-22 09:45 | HHI.PR ---
Subjective Remarks Patient says he is feeling all right. Denies any chest pain or shortness of breath. Denies any bleeding. Objective Vital Signs Date Time Temp Pulse Resp B/P (MAP) Pulse Ox O2 Delivery O2 Flow Rate FiO2 07/22/17 07:42 98.2 79 18 167/79 (108) 94 07/22/17 03:20 97.7 70 16 129/65 (86) 97 07/21/17 23:19 98.6 16 16 121/64 (83) 95 07/21/17 19:43 98.2 69 16 123/67 (85) 97 07/21/17 17:09 98.4 74 18 119/61 (80) 97 07/21/17 12:26 97.7 70 18 136/67 (90) 96 I/O 07/21/17 07/21/17 07/21/17 07/22/17 07/22/17 07/22/17 07:00 15:00 23:00 07:00 15:00 23:00 Intake Total 400 ml Balance 400 ml Packed Cells 400 ml Result Diagram: 07/22/1772107/22/17721 Objective Remarks GENERAL: patient sitting up in bed. Appears comfortable. no chnage on exam SKIN: Warm and dry. HEAD: Normocephalic. EYES: No scleral icterus. No injection or drainage. NECK: Supple, trachea midline. No JVD. CARDIOVASCULAR: Regular rate and rhythm without murmurs, gallops, or rubs. RESPIRATORY: Breath sounds equal bilaterally. No accessory muscle use. GASTROINTESTINAL: Abdomen soft, non-tender, nondistended. MUSCULOSKELETAL: No cyanosis, or edema. neurologic. Patient somewhat stiff, however able to move as needed. Speech intact. BACK: Nontender without obvious deformity. No CVA tenderness. A/P Assessment and Plan Patient is a 71 year old male who is a resident of a [place] [facility] with primary medical history of severe Parkinson's disease with brain stimulator, HTN, HLD, chronic back pain who came into the hospital for evaluation of altered mental status and low hemoglobin on today's labs. GI bleed -H&H 7.0/20.9 -Check stool for heme -GI consult appreciated recommend a -Protonix IV, 1 unit packed RBC, may need 2 units -Keep n.p.o. for now -IV fluids for hydration, avoid NSAIDs, aspirin -Monitor CBC = Plan for EGD/colonoscopy. Appreciate GI assistance. Parkinson's disease -Severe parkinsonism, brain stimulator in place battery on the right subclavian area -Continue home medication once cleared by GI for PO HTN -Monitor BP trend for now. BP is on the low side secondary to hypovolemia/ anemia Anemia -Possibly secondary to blood loss, GI bleed -Check iron panel, ferritin -We will start iron supplementation if warranted = Continue to monitor hemoglobin. A 8.8 today after transfusion. 7.0 on admission. = 4/. Hemoglobin 8.4 slow down trend from yesterday and continue to monitor. No signs of bleeding. DVT SCDs, hold off chemoprophylaxis for now Discharge Planning pending GI clearance. Mingo Bueno MD Jul 22, 2017 09:45
[2017-07-22] MEDS: DOCUSATE SODIUM 50 MG/SENNA 8.6 MG TAB PO SCH ×2 (09:47→21:30)
[2017-07-22] MEDS ORDERED: PEG (High)/E-LYTE SOLN 4000 ML BTL PO ONE (10:00)
[2017-07-22 13:10] VITALS: BP 115/59; PULSE 75; RESP 18; TEMP 98.4; O2SAT 96
[2017-07-22] MEDS: AMANTADINE HCL 100 MG CAP PO SCH (13:55)
--- NOTE | 2017-07-22 16:16 | HHI.GIFU ---
Subjective Remarks Sitting up in bed drinking goLytely. No obvious bleeding or abd pain. (Izabel Gaspar) Objective Vitals I&O Vital Signs Date Time Temp Pulse Resp B/P (MAP) Pulse Ox O2 Delivery O2 Flow Rate FiO2 07/22/17 13:10 98.4 75 18 115/59 (77) 96 07/22/17 07:42 98.2 79 18 167/79 (108) 94 07/22/17 03:20 97.7 70 16 129/65 (86) 97 07/21/17 23:19 98.6 16 16 121/64 (83) 95 07/21/17 19:43 98.2 69 16 123/67 (85) 97 07/21/17 17:09 98.4 74 18 119/61 (80) 97 I/O 07/21/17 07/21/17 07/21/17 07/22/17 07/22/17 07/22/17 07:00 15:00 23:00 07:00 15:00 23:00 Intake Total 400 ml Balance 400 ml Packed Cells 400 ml Laboratory Laboratory Tests Test 07/21/17 18:08 07/22/17 01:25 07/22/17 07:22 07/22/17 10:41 Hemoglobin 8.6 8.6 8.4 8.4 White Blood Count 9.5 Red Blood Count 2.90 Hematocrit 24.7 Mean Corpuscular Volume 85.2 Mean Corpuscular Hemoglobin 29.0 Mean Corpuscular Hemoglobin Concent 34.0 Red Cell Distribution Width 15.0 Platelet Count 381 Mean Platelet Volume 8.3 Blood Urea Nitrogen 17 Creatinine 0.81 Random Glucose 103 Albumin 2.6 Calcium Level 8.4 Phosphorus Level 2.5 Magnesium Level 2.3 Sodium Level 141 Potassium Level 3.7 Chloride Level 108 Carbon Dioxide Level 25.4 Anion Gap 8 Estimat Glomerular Filtration Rate 94 Physical Exam HEENT: PERRL; normocephalic; atraumatic; no jaundice. CHEST: CTA CARDIAC: RRR ABDOMEN: Soft, nondistended, nontender; no hepatosplenomegaly; bowel sounds are present in all four quadrants. EXTREMITIES: No clubbing, cyanosis, or edema. SKIN: Normal; no rash; no jaundice. FRUIT OR NUT PICKER: alert (Izabel Gaspar) Assessment and Plan Assessment: (1) GI bleed ICD Codes: K92.2 - Gastrointestinal hemorrhage, unspecified Status: Acute Plan Symptomatic anemia and low iron saturation and iron levels on labs, probable iron deficiency anemia. Unknown dark tarry stools, hematemesis or melena No current nausea or vomiting Positive gastric discomfort to light palpation. Listed in the patient's old record is EGD and colonoscopy will research records. According to the nurse there is a daughter who is the POA. 07/22/17 denies abd pain, obvious bleeding. taking his prep. HH is stable. Plan - EGD and colonoscopy tomorrow - GoLytely - NPO after midnight - monitor labs - notify GI of active bleeding -Transfuse as necessary Patient was seen per myself and Dr. Delgado, note was written on his behalf (Izabel Gaspar) Physician Comments Patient seen and examined Agree with above Continue with current supportive care Monitor labs EGD colonoscopy tomorrow (Galileo Delgado MD) Problem Qualifiers (1) GI bleed: Qualified Codes: K92.2 - Gastrointestinal hemorrhage, unspecified Izabel Gaspar Jul 22, 2017 16:16 Galileo Delgado MD Jul 22, 2017 19:10
[2017-07-22] MEDS: SODIUM CHLOR 0.9% 1000 ML INJ 1,000 ML IV SCH (18:50)
[2017-07-22 22:33] VITALS: BP 146/73; PULSE 79; RESP 22; TEMP 98.1; O2SAT 96
[2017-07-23] MEDS ORDERED: POVIDONE IODINE 5% (ANTISEPSIS KIT) 4 APPLICATIONS EACH NARE PRN (02:00)
[2017-07-23] MEDS ORDERED: CHLORHEXIDINE GLUCONATE 2 % 1 PACK (2 CLOTHS) TOPICAL PRN (02:00)
[2017-07-23] MEDS ORDERED: LACTATED RINGER'S 1000 ML IV PRN (02:00)
[2017-07-23] MEDS: CARBIDOPA/LEVODOPA 25 MG/250 MG TAB PO SCH ×3 (04:54→22:25)
[2017-07-23] MEDS: PANTOPRAZOLE INJ 80 MG in SODIUM CHLORIDE 0.9% INJ 100 ML IV SCH ×2 (04:54→15:00)
[2017-07-23 08:00] VITALS: BP 162/77; PULSE 74; RESP 19; TEMP 97.5; O2SAT 96
[2017-07-23 08:02] LABS: AUTOMATED NEUTROPHIL # 4.9 TH/MM3 (1.8-7.7); BASOPHIL % 0.5 % (0.0-2.0); EOSINOPHIL # 0.1 TH/MM3 (0-0.4); EOSINOPHIL % 1.5 % (0.0-4.0); HEMATOCRIT 26.2 % (39.0-51.0); HEMOGLOBIN 8.9 GM/DL (13.0-17.0); LYMPH % 23.6 % (9.0-44.0); LYMPHOCYTE # 1.8 TH/MM3 (1.0-4.8); MEAN CELL VOLUME 85.9 FL (80.0-100.0); MEAN CORPUSCULAR HEMOGLOBIN 29.1 PG (27.0-34.0); MEAN CORPUSCULAR HGB CONC 33.8 % (32.0-36.0); MEAN PLATELET VOLUME 8.2 FL (7.0-11.0); MONO % 9.1 % (0.0-8.0); MONOCYTE # 0.7 TH/MM3 (0-0.9); NEUT % 65.3 % (16.0-70.0); PLATELET COUNT 410 TH/MM3 (150-450); RED BLOOD COUNT 3.04 MIL/MM3 (4.50-5.90); RED CELL DISTRIBUTION WIDTH 14.9 % (11.6-17.2); WHITE BLOOD COUNT 7.6 TH/MM3 (4.0-11.0)
[2017-07-23 08:23] LABS: ALBUMIN 2.7 GM/DL (3.4-5.0); BICARBONATE 26.1 MEQ/L (21.0-32.0); CALCIUM 8.5 MG/DL (8.5-10.1); CREATININE 0.81 MG/DL (0.60-1.30); MAGNESIUM 2.2 MG/DL (1.5-2.5); PHOSPHORUS 2.4 MG/DL (2.5-4.9)
[2017-07-23] MEDS: ENTACAPONE 200 MG PO SCH (08:37)
[2017-07-23] MEDS: SODIUM CHLORIDE 0.9% FLUSH 10 ML FLUSH IV FLUSH SCH ×2 (08:37→21:00)
[2017-07-23] MEDS: DOCUSATE SODIUM 50 MG/SENNA 8.6 MG TAB PO SCH ×2 (08:37→22:25)
--- NOTE | 2017-07-23 10:21 | GIPROC ---
[facility] [address] [facility]. [facility], [address] EGD PROCEDURE REPORT EXAM DATE: 07/23/2017 PATIENT NAME: Andrea Rubin MR #: [id number] BIRTHDATE: 1945 ATTENDING: Melani Murphy MD ORDER #: [id number] ACCOUNTS RECEIVABLE ACCOUNTANT: Librado Riddle and Sloane Tomlinson STATUS: inpatient INDICATIONS: The patient is a 71 yr old male here for an EGD due to iron deficiency anemia and epigastric abdominal pain PROCEDURE PERFORMED: EGD w/ biopsy MEDICATIONS: None and Per Anesthesia. TOPICAL ANESTHETIC: CONSENT: The patient understands the risks and benefits of the procedure and understands that these risks include, but are not limited to: sedation, allergic reaction, infection, perforation and/or bleeding. Alternative means of evaluation and treatment include, among others: physical exam, x-rays, and/or surgical intervention. The patient elects to proceed with this endoscopic procedure. medical equipment was checked for proper function. Hand hygiene and appropriate measures for infection prevention was taken. After the risks, benefits and alternatives of the procedure were thoroughly explained, Informed consent was verified, confirmed and timeout was successfully executed by the treatment team. The patient was anesthetized with topical anesthesia and the EC-[id number] (Pedi C) endoscope was introduced through the mouth and advanced to the second portion of the duodenum. Retroflexed views revealed an ulcer The gastroscope was then slowly withdrawn and removed. ESOPHAGUS: The mucosa of the esophagus appeared normal. STOMACH: A single non-bleeding and deep ulcer measuring 15 x 20mm in size with surrounding edema and a pigmented spot was found in the gastric body. Biopsies were taken at edge of the ulcer. There was erythematous moderate gastritis in the gastric antrum. A biopsy was performed using cold forceps. Sample sent for histology. DUODENUM: The duodenal mucosa appeared normal in the bulb and second portion of the duodenum. ADVERSE EVENTS: There were no complications. IMPRESSIONS: 1. The esophagus appeared normal 2. Single ulcer measuring 15 x 20mm in size was found in the gastric body; biopsies were taken 3. There was erythematous gastritis in the gastric antrum; biopsy was performed 4. Normal duodenal mucosa in the bulb and second portion of the duodenum 5. Retroflexed views revealed an ulcer RECOMMENDATIONS: 1. Await biopsy results. Biopsy results will not be ready for 7-10 days. If you don't hear from us in two weeks, call our office for biopsy results. 2. Anti-reflux regimen 3. Continue PPI 4. Avoid NSAIDS PATIENT CONDITION: stable DISPOSITION: Inpatient REPEAT EXAM: Return 2 months EGD pending biopsy results Melani Murphy MD eSigned: Melani Murphy MD 07/23/2017 10:21 AM cc: PATIENT NAME: Andrea Rubin MR#: [id number]
--- NOTE | 2017-07-23 10:23 | GIPROC ---
[facility] [address] [facility]. [facility], [address] COLONOSCOPY PROCEDURE REPORT EXAM DATE: 07/23/2017 PATIENT NAME: Andrea Rubin MR #: [id number] BIRTHDATE: 1945 ENDOSCOPIST: Melani Murphy MD ORDER #: [id number] TANNING CONSULTANT: Librado Riddle and Sloane Tomlinson STATUS: inpatient INDICATIONS: The patient is a 71 yr old male here for a colonoscopy due to abdominal pain and iron deficiency anemia PROCEDURE PERFORMED: Colonoscopy, diagnostic MEDICATIONS: None and Per Anesthesia. PREP QUALITY: The [place] Bowel Prep Score was Right colon 2, Mid colon 3, and Left colon 3. Total = 8. PREP TYPE:GoLytely ESTIMATED BLOOD LOSS: None CONSENT: The patient understands the risks and benefits of the procedure and understands that these risks include, but are not limited to: sedation, allergic reaction, infection, perforation and/or bleeding. Alternative means of evaluation and treatment include, among others: physical exam, x-rays, and/or surgical intervention. The patient elects to proceed with this endoscopic procedure. medical equipment was checked for proper function. Hand hygiene and appropriate measures for infection prevention was taken. After the risks, benefits and alternatives of the procedure were thoroughly explained, Informed consent was verified, confirmed and timeout was successfully executed by the treatment team. A digital exam revealed external hemorrhoids The Pentax EC-[id number] endoscope was introduced through the anus and advanced to the cecum, which was identified by both the appendix and ileocecal valve. The instrument was then slowly withdrawn as the colon was fully examined. COLON FINDINGS: The colonic mucosa appeared normal throughout the entire examined colon. Retroflexed views revealed internal hemorrhoids and Retroflexed views revealed small internal hemorrhoids The scope was then completely withdrawn from the patient and the procedure terminated. PROCEDURE WITHDRAWAL TIME:6minutes ADVERSE EVENTS: There were no complications. IMPRESSIONS: 1. The colonic mucosa appeared normal throughout the entire examined colon 2. Retroflexed views revealed internal hemorrhoids 3. Retroflexed views revealed small internal hemorrhoids 4. Revealed external hemorrhoids RECOMMENDATIONS: 1. Continue surveillance 2. Yearly hemoccult RECALL: Return 10 years Colonoscopy Melani Murphy MD eSigned: Melani Murphy MD 07/23/2017 10:22 AM cc:
[2017-07-23 12:00] VITALS: BP 174/78; PULSE 66; RESP 19; TEMP 97.7; O2SAT 98
[2017-07-23] MEDS ORDERED: LIDOCAINE HCL 1% PF 5 ML SYRINGE OTHER ONE (12:00)
[2017-07-23] MEDS ORDERED: PROPOFOL 200 MG/20 ML AMP IV ONE (12:00)
--- NOTE | 2017-07-23 12:16 | HHI.PR ---
Subjective Remarks in no acute distress. had EGD/ colonoscopy earlier today. no chest pain or sob. no active GI bleed. family at the bedside. Objective Vitals Vital Signs Date Time Temp Pulse Resp B/P (MAP) Pulse Ox O2 Delivery O2 Flow Rate FiO2 07/23/17 10:24 97.4 64 16 105/63 (77) 96 07/23/17 08:00 97.5 74 19 162/77 (105) 96 07/22/17 22:33 98.1 79 22 146/73 (97) 96 07/22/17 13:10 98.4 75 18 115/59 (77) 96 I/O 07/22/17 07/22/17 07/22/17 07/23/17 07/23/17 07/23/17 07:00 15:00 23:00 07:00 15:00 23:00 Intake Total 0 ml 300 ml Output Total 575 ml Balance -575 ml 300 ml Intake Oral 0 ml Other 300 ml Output Urine Total 575 ml # Voids 1 # Bowel Movements 1 Result Diagram: 07/23/17 0636 07/23/17 0636 Objective Remarks GENERAL: This is a well-nourished, well-developed patient, in no apparent distress. CARDIOVASCULAR: Regular rate and regular rhythm without murmurs, gallops, or rubs. RESPIRATORY: Clear to auscultation. Breath sounds equal bilaterally. No wheezes , rales, or rhonchi. GASTROINTESTINAL: Abdomen soft, non-tender, nondistended. Normal, active bowel sounds MUSCULOSKELETAL: Extremities without clubbing, cyanosis, or edema. NEURO: Alert & Oriented x4 to person, place, time, situation. Moves all ext x4 Procedures EGD/ colonoscopy Medications and IVs Inpatient Medications Acetaminophen (Tylenol) 650 mg Q4H PRN PO TEMP > 100.4, PEÑA, Pain 1-4; Start at 17:45 Amantadine HCl (Symmetrel) 100 mg Q24H PO Last administered on 07/22/17at 13:55; Start 07/21/17 at 13:00 Bisacodyl (Dulcolax Supp) 10 mg DAILY PRN RECTAL SEVERE CONSITIPATION; Start at 17:45 Carbidopa/Levodopa (Sinemet 25-250 Mg) 1 tab Q8HR PO Last administered on at 04:54; Start 07/21/17 at 14:00 Chlorhexidine Gluconate (Chlorhexidine 2% Cloth) 3 pack RESEARCH LAB ASSISTANT PRN TOPICAL SEE LABEL COMMENTS; Start 07/23/17 at 02:00; Stop 07/26/17 at 01:59 Lactated Ringer's 1,000 ml @ 30 mls/hr Q24H PRN IV SEE LABEL COMMENTS; Start at 02:00; Stop 07/26/17 at 01:59 Lactulose (Lactulose Liq) 30 ml DAILY PRN PO SEVERE CONSITIPATION; Start at 17:45 Magnesium Hydroxide (Milk Of Magnesia Liq) 30 ml Q12H PRN PO Mild constipation ; Start 07/20/17 at 17:45 Naloxone HCl (Narcan Inj) 0.4 mg UNSCH PRN IV PUSH SEE LABEL COMMENTS; Start at 17:45 Ondansetron HCl (Zofran Inj) 4 mg Q6H PRN IVP NAUSEA OR VOMITING; Start at 17:45 Pantoprazole Sodium (Protonix Inj) 40 mg Q12H IV PUSH ; Start 07/21/17 at 09:00 ; Status Future Hold Pantoprazole Sodium 80 mg/ Sodium Chloride 100 ml @ 10 mls/hr Q10H IV Last administered on 07/23/17at 04:54; Start 07/21/17 at 03:00 Patient Own Medication PT OWN MED: ENTACAP... DAILY PO ; Start 07/21/17 at 12:00 ; Status Future hold Polyethylene Glycol/ Electrolytes (Colyte Liq) 4,000 ml ONCE ONCE PO Last administered on 07/22/17at 09:47; Start 07/22/17 at 10:00; Stop 07/22/17 at 10:01; Status DC Povidone Iodine (Betadine 5% Antisepsis Kit) 1 applic RESEARCH LAB ASSISTANT PRN EACH NARE SEE LABEL COMMENTS; Start 07/23/17 at 02:00; Stop 07/26/17 at 01:59 Ropinirole HCl (Requip) 2 mg BID PO Last administered on 07/22/17at 21:30; Start 07/21/17 at 12:00 Senna/Docusate Sodium (Melissa-Colace) 1 tab BID PO Last administered on 07/22/17at 21:30; Start 07/20/17 at 21:00 Sennosides (Senokot) 17.2 mg Q12H PRN PO Moderate constipation; Start 07/20/17 at 17:45 Sodium Chloride 1,000 ml @ 42 mls/hr [id number] IV Last administered on 07/22/17at 18:50; Start 07/20/17 at 18:00 Sodium Chloride (NS Flush) 2 ml BID IV FLUSH Last administered on 07/23/17at 08: 37; Start 07/20/17 at 21:00 A/P Problem List: (1) GI bleed ICD Code: K92.2 - Gastrointestinal hemorrhage, unspecified Status: Acute (2) Parkinson disease ICD Code: G20 - Parkinson's disease Status: Acute (3) Hypertension ICD Code: I10 - Essential (primary) hypertension Status: Acute Assessment and Plan GI bleed s/p EGD with gastric ulcer/ s/p colonoscopy with hemorrhoids continue with PPI and H/H monitoring Parkinson's disease -Severe parkinsonism, brain stimulator in place battery on the right subclavian area -Continue home medication once cleared by GI for PO HTN -resume home meds from tomorrow if stable. Anemia -Possibly secondary to blood loss, GI bleed -s/p PRBC transfusion -will monitor DVT SCDs, hold off chemoprophylaxis for now Discharge Planning dc to SNF in am if stable. Problem Qualifiers (1) GI bleed: Qualified Codes: K92.2 - Gastrointestinal hemorrhage, unspecified Eboni Bautista MD Jul 23, 2017 12:16
[2017-07-23] MEDS ORDERED: PILL SPLITTER OTHER PRN (12:45)
[2017-07-23] MEDS: AMANTADINE HCL 100 MG CAP PO SCH (13:00)
[2017-07-23] MEDS: GABAPENTIN 300 MG CAP PO SCH ×2 (13:13→22:25)
[2017-07-23 16:00] VITALS: BP 134/65; PULSE 76; RESP 19; TEMP 97.7; O2SAT 98
[2017-07-23] MEDS: SODIUM CHLOR 0.9% 1000 ML INJ 1,000 ML IV SCH (16:35)
[2017-07-23 17:54] LABS: HEMATOCRIT 26.3 % (39.0-51.0); HEMOGLOBIN 8.7 GM/DL (13.0-17.0)
[2017-07-23 20:00] VITALS: BP 142/76; PULSE 74; RESP 18; TEMP 97.7; O2SAT 99
[2017-07-24] VITALS: BP 151/75; PULSE 69; RESP 16; TEMP 97.9; O2SAT 99
[2017-07-24] MEDS: PANTOPRAZOLE INJ 80 MG in SODIUM CHLORIDE 0.9% INJ 100 ML IV SCH ×2 (01:09→11:29)
[2017-07-24 04:00] VITALS: BP 165/74; PULSE 68; RESP 18; TEMP 98.1; O2SAT 97
[2017-07-24] MEDS: GABAPENTIN 300 MG CAP PO SCH ×2 (05:30→13:12)
[2017-07-24] MEDS: CARBIDOPA/LEVODOPA 25 MG/250 MG TAB PO SCH ×2 (05:30→13:12)
[2017-07-24 06:46] LABS: HEMATOCRIT 26.9 % (39.0-51.0); HEMOGLOBIN 8.8 GM/DL (13.0-17.0)
[2017-07-24] MEDS: DOCUSATE SODIUM 50 MG/SENNA 8.6 MG TAB PO SCH (07:59)
[2017-07-24] MEDS: SODIUM CHLORIDE 0.9% FLUSH 10 ML FLUSH IV FLUSH SCH (08:00)
[2017-07-24] MEDS: ENTACAPONE 200 MG PO SCH (08:00)
[2017-07-24] MEDS ORDERED: LISINOPRIL 5 MG TAB PO SCH (09:00)
[2017-07-24] MEDS ORDERED: SERTRALINE HCL 50 MG TAB PO SCH (09:00)
--- NOTE | 2017-07-24 09:11 | HHI.PR ---
Subjective Remarks in no acute distress. resting comfortably. no GI bleed over night. d/w the RN. Objective Vitals Vital Signs Date Time Temp Pulse Resp B/P (MAP) Pulse Ox O2 Delivery O2 Flow Rate FiO2 07/24/17 04:00 98.1 68 18 165/74 (104) 97 07/24/17 00:00 97.9 69 16 151/75 (100) 99 07/23/17 20:00 97.7 74 18 142/76 (98) 99 07/23/17 16:00 97.7 76 19 134/65 (88) 98 07/23/17 12:00 97.7 66 19 174/78 (110) 98 07/23/17 10:24 97.4 64 16 105/63 (77) 96 I/O 07/23/17 07/23/17 07/23/17 07/24/17 07/24/17 07/24/17 07:00 15:00 23:00 07:00 15:00 23:00 Intake Total 0 ml 300 ml 1240 ml 100 ml Output Total 575 ml 275 ml Balance -575 ml 300 ml 1240 ml -175 ml Intake Oral 0 ml 720 ml IV Total 520 ml 100 ml Other 300 ml Output Urine Total 575 ml 275 ml # Voids 1 5 4 # Bowel Movements 1 1 Result Diagram: 07/24/17 0427 07/23/17 0636 Objective Remarks GENERAL: This is a well-nourished, well-developed patient, in no apparent distress. CARDIOVASCULAR: Regular rate and regular rhythm without murmurs, gallops, or rubs. RESPIRATORY: Clear to auscultation. Breath sounds equal bilaterally. No wheezes , rales, or rhonchi. GASTROINTESTINAL: Abdomen soft, non-tender, nondistended. Normal, active bowel sounds MUSCULOSKELETAL: Extremities without clubbing, cyanosis, or edema. NEURO: awake and alert. Procedures EGD/ colonoscopy Medications and IVs Inpatient Medications Acetaminophen (Tylenol) 650 mg Q4H PRN PO TEMP > 100.4, PEÑA, Pain 1-4; Start at 17:45 Amantadine HCl (Symmetrel) 100 mg Q24H PO Last administered on 07/22/17at 13:55; Start 07/21/17 at 13:00 Bisacodyl (Dulcolax Supp) 10 mg DAILY PRN RECTAL SEVERE CONSITIPATION; Start at 17:45 Carbidopa/Levodopa (Sinemet 25-250 Mg) 1 tab Q8HR PO Last administered on at 05:30; Start 07/21/17 at 14:00 Chlorhexidine Gluconate (Chlorhexidine 2% Cloth) 3 pack TORPEDO WORKER PRN TOPICAL SEE LABEL COMMENTS; Start 07/23/17 at 02:00; Stop 07/26/17 at 01:59 Gabapentin (Neurontin) 300 mg Q8HR PO Last administered on 07/24/17at 05:30; Start 07/23/17 at 14:00 Lactated Ringer's 1,000 ml @ 30 mls/hr Q24H PRN IV SEE LABEL COMMENTS; Start at 02:00; Stop 07/26/17 at 01:59 Lactulose (Lactulose Liq) 30 ml DAILY PRN PO SEVERE CONSITIPATION; Start at 17:45 Lisinopril (Prinivil) 2.5 mg DAILY PO Last administered on 07/24/17at 07:59; Start 07/24/17 at 09:00 Magnesium Hydroxide (Milk Of Magnesia Liq) 30 ml Q12H PRN PO Mild constipation ; Start 07/20/17 at 17:45 Miscellaneous (Pill Splitter) 1 ea UNSCH PRN OTHER SEE LABEL COMMENTS; Start at 12:45 Naloxone HCl (Narcan Inj) 0.4 mg UNSCH PRN IV PUSH SEE LABEL COMMENTS; Start at 17:45 Ondansetron HCl (Zofran Inj) 4 mg Q6H PRN IVP NAUSEA OR VOMITING; Start at 17:45 Pantoprazole Sodium (Protonix Inj) 40 mg Q12H IV PUSH ; Start 07/21/17 at 09:00 ; Status Future Hold Pantoprazole Sodium 80 mg/ Sodium Chloride 100 ml @ 10 mls/hr Q10H IV Last administered on 07/24/17at 01:09; Start 07/21/17 at 03:00 Patient Own Medication PT OWN MED: ENTACAP... DAILY PO Last administered on 07/24at 08:00; Start 07/21/17 at 12:00; Status Future hold Polyethylene Glycol/ Electrolytes (Colyte Liq) 4,000 ml ONCE ONCE PO Last administered on 07/22/17at 09:47; Start 07/22/17 at 10:00; Stop 07/22/17 at 10:01; Status DC Povidone Iodine (Betadine 5% Antisepsis Kit) 1 applic TORPEDO WORKER PRN EACH NARE SEE LABEL COMMENTS; Start 07/23/17 at 02:00; Stop 07/26/17 at 01:59 Ropinirole HCl (Requip) 2 mg BID PO Last administered on 07/24/17at 08:00; Start 07/21/17 at 12:00 Senna/Docusate Sodium (Melissa-Colace) 1 tab BID PO Last administered on 07/24/17at 07:59; Start 07/20/17 at 21:00 Sennosides (Senokot) 17.2 mg Q12H PRN PO Moderate constipation; Start 07/20/17 at 17:45 Sertraline HCl (Zoloft) 50 mg DAILY PO Last administered on 07/24/17at 08:00; Start 07/24/17 at 09:00 Sodium Chloride 1,000 ml @ 42 mls/hr [id number] IV Last administered on 07/23/17at 16:35; Start 07/20/17 at 18:00 Sodium Chloride (NS Flush) 2 ml BID IV FLUSH Last administered on 07/23/17at 21: 00; Start 07/20/17 at 21:00 A/P Problem List: (1) GI bleed ICD Code: K92.2 - Gastrointestinal hemorrhage, unspecified Status: Acute (2) Parkinson disease ICD Code: G20 - Parkinson's disease Status: Acute (3) Hypertension ICD Code: I10 - Essential (primary) hypertension Status: Acute Assessment and Plan GI bleed s/p EGD with gastric ulcer; pathology pending/ s/p colonoscopy with hemorrhoids. H/H fairly stable. continue with PPI . Parkinson's disease -Severe parkinsonism, brain stimulator in place battery on the right subclavian area -Continue home medication once cleared by GI for PO HTN -resume home meds . Anemia -Possibly secondary to blood loss, GI bleed -s/p PRBC transfusion -H/H fairly stable. Discharge Planning dc to SNF today. see med list. f/u; pcp and GI. d/w the patient and RN. previously d/w the family. time spent 35 min. Problem Qualifiers (1) GI bleed: Qualified Codes: K92.2 - Gastrointestinal hemorrhage, unspecified Eboni Bautista MD Jul 24, 2017 09:11
[2017-07-24] MEDS ORDERED: NORC5TAB PO (09:13)
[2017-07-24] MEDS ORDERED: PROT40TA PO (09:13)
--- NOTE | 2017-07-24 09:17 | HHI.DS ---
Discharge Summary Admission Date Jul 20, 2017 at 17:42 Discharge Date: Jul 24, 2017 Admitting Diagnosis AMS; GI BLEED (1) GI bleed ICD Code: K92.2 - Gastrointestinal hemorrhage, unspecified Diagnosis: Principal Status: Acute (2) Parkinson disease ICD Code: G20 - Parkinson's disease Diagnosis: Secondary Status: Acute (3) Hypertension ICD Code: I10 - Essential (primary) hypertension Diagnosis: Secondary Status: Acute Procedures EGD/ colonoscopy Brief History - From Admission Written by Moshe Solomon, acting as scribe for Dr. Bingham on 07/20/17 at 17:42. Patient is a 71 year old male who is a [facility] of a [place] with primary medical history of severe Parkinson's disease with brain stimulator, HTN, HLD, chronic back pain who came into the hospital for evaluation of altered mental status and low hemoglobin on today's labs. Patient seen and examined today. States he came to the hospital because he has blood in his stool. Patient speech is severely garbled and barely understandable. States that his speech has been worsened by his Parkinson's disease. Most of the history is reviewed from prior visit to the hospital and collateral with other staff. Patient complains of abdominal pain 5/10, burning sensation, does not know what aggravates or relieves the pain. It does not radiate anywhere. Denies SOB/ dyspnea. Denies chest pain, palpitations, headaches, dizziness. Denies fevers, chills, n/v/d. Denies dysuria. CBC/BMP: 07/24/17 0427 07/23/17 0636 Significant Findings Laboratory Tests Test 07/21/17 11:31 07/21/17 18:08 07/22/17 01:25 07/22/17 07:22 Hemoglobin 9.1 GM/DL (13.0-17.0) 8.6 GM/DL (13.0-17.0) 8.6 GM/DL (13.0-17.0) 8.4 GM/DL (13.0-17.0) Red Blood Count 2.90 MIL/MM3 (4.50-5.90) Hematocrit 24.7 % (39.0-51.0) Albumin 2.6 GM/DL (3.4-5.0) Calcium Level 8.4 MG/DL (8.5-10.1) Chloride Level 108 MEQ/L (98-107) Test 07/22/17 10:41 07/22/17 17:49 07/23/17 06:36 07/23/17 15:51 Hemoglobin 8.4 GM/DL (13.0-17.0) 9.2 GM/DL (13.0-17.0) 8.9 GM/DL (13.0-17.0) 8.7 GM/DL (13.0-17.0) Red Blood Count 3.04 MIL/MM3 (4.50-5.90) Hematocrit 26.2 % (39.0-51.0) 26.3 % (39.0-51.0) Monocytes (%) (Auto) 9.1 % (0.0-8.0) Albumin 2.7 GM/DL (3.4-5.0) Phosphorus Level 2.4 MG/DL (2.5-4.9) Chloride Level 108 MEQ/L (98-107) Test 07/24/17 04:27 Hemoglobin 8.8 GM/DL (13.0-17.0) Hematocrit 26.9 % (39.0-51.0) PE at Discharge GENERAL: This is a well-nourished, well-developed patient, in no apparent distress. CARDIOVASCULAR: Regular rate and regular rhythm without murmurs, gallops, or rubs. RESPIRATORY: Clear to auscultation. Breath sounds equal bilaterally. No wheezes , rales, or rhonchi. GASTROINTESTINAL: Abdomen soft, non-tender, nondistended. Normal, active bowel sounds MUSCULOSKELETAL: Extremities without clubbing, cyanosis, or edema. NEURO: awake and alert. Hospital Course GI bleed s/p EGD with gastric ulcer; pathology pending/ s/p colonoscopy with hemorrhoids. H/H fairly stable. continue with PPI . Parkinson's disease -Severe parkinsonism, brain stimulator in place battery on the right subclavian area -Continue home medication once cleared by GI for PO HTN -resume home meds . Anemia -Possibly secondary to blood loss, GI bleed -s/p PRBC transfusion -H/H fairly stable. Pt Condition on Discharge: Fair Discharge Disposition: Discharge to SNF Discharge Time: > 30 minutes Discharge Instructions DIET: Follow Instructions for: Heart Healthy Diet Activities you can perform: Regular-No Restrictions Eboni Bautista MD Jul 24, 2017 09:17
[2017-07-24] MEDS: AMANTADINE HCL 100 MG CAP PO SCH (13:12)
--- NOTE | 2017-07-24 13:28 | HHI.GIFU ---
Subjective Remarks Pt eating lunch, friend at bedside. No GI complaints. Denies abd pain. (Izabel Gaspar) Objective Vitals I&O Vital Signs Date Time Temp Pulse Resp B/P (MAP) Pulse Ox O2 Delivery O2 Flow Rate FiO2 07/24/17 04:00 98.1 68 18 165/74 (104) 97 07/24/17 00:00 97.9 69 16 151/75 (100) 99 07/23/17 20:00 97.7 74 18 142/76 (98) 99 07/23/17 16:00 97.7 76 19 134/65 (88) 98 I/O 07/23/17 07/23/17 07/23/17 07/24/17 07/24/17 07/24/17 07:00 15:00 23:00 07:00 15:00 23:00 Intake Total 0 ml 300 ml 1240 ml 100 ml Output Total 575 ml 275 ml Balance -575 ml 300 ml 1240 ml -175 ml Intake Oral 0 ml 720 ml IV Total 520 ml 100 ml Other 300 ml Output Urine Total 575 ml 275 ml # Voids 1 5 4 # Bowel Movements 1 1 Laboratory Laboratory Tests Test 07/23/17 15:51 07/24/17 04:27 Hemoglobin 8.7 8.8 Hematocrit 26.3 26.9 Physical Exam HEENT: PERRL; normocephalic; atraumatic; no jaundice. CHEST: CTA CARDIAC: RRR ABDOMEN: Soft, nondistended, nontender; no hepatosplenomegaly; bowel sounds are present in all four quadrants. EXTREMITIES: No clubbing, cyanosis, or edema. SKIN: Normal; no rash; no jaundice. WHITE SOURER: alert (Izabel Gaspar) Assessment and Plan Assessment: (1) GI bleed ICD Codes: K92.2 - Gastrointestinal hemorrhage, unspecified Status: Acute Plan Symptomatic anemia and low iron saturation and iron levels on labs, probable iron deficiency anemia. Unknown dark tarry stools, hematemesis or melena No current nausea or vomiting Positive gastric discomfort to light palpation. Listed in the patient's old record is EGD and colonoscopy will research records. According to the nurse there is a daughter who is the POA. 07/22/17 denies abd pain, obvious bleeding. taking his prep. HH is stable. 07/24/17 s/p EGD and colonoscopy, findings single ulcer, hemorrhoids. bx pending Plan - WIL - await bx - PPI - monitor labs - notify GI of active bleeding f/u with GI after d/c - will need EGD 2 months Patient was seen per myself and Dr. Murphy, note was written on his behalf (Izabel Gaspar) Physician Comments Seen and examined with BRUSHING MACHINE OPERATOR, no bleeding. Tolerating po diet. FU egd in 02 months. PPI and no NSAIDs. Gi fu u[sharath dc with repeat cbc. Will sign off, Thank you (Melani Murphy MD) Problem Qualifiers (1) GI bleed: Qualified Codes: K92.2 - Gastrointestinal hemorrhage, unspecified Izabel Gaspar Jul 24, 2017 13:28 Melani Murphy MD Jul 24, 2017 15:00
== END 2017-07-24 14:36 | DRG 379 ==
LOC: NEPE 14:28 → NEDA 16:52 → OBSVTOIN 17:42 → NEPGCP 19:13 → N07A 07-22 21:53
PROVIDERS: ADMIT Internal Medicine; ATTEND Internal Medicine
PROC: 30233N1 Transfusion of Nonautologous Red Blood Cells into Peripheral Vein, Percutaneous Approach (ICD-10-PCS; 2017-07-20)
PROC: 0DJD8ZZ Inspection of Lower Intestinal Tract, Via Natural or Artificial Opening Endoscopic (ICD-10-PCS; principal; 2017-07-23 09:53)
PROC: 0DB68ZX Excision of Stomach, Via Natural or Artificial Opening Endoscopic, Diagnostic (ICD-10-PCS; 2017-07-23 09:53)
DX: K92.1 Melena (principal); G20 Parkinson's disease; E86.1 Hypovolemia; D50.9 Iron deficiency anemia, unspecified; I10 Essential (primary) hypertension; E78.5 Hyperlipidemia, unspecified; M54.9 Dorsalgia, unspecified; G89.29 Other chronic pain; Z82.49 Family history of ischemic heart disease and other diseases of the circulatory system; K64.4 Residual hemorrhoidal skin tags; K64.8 Other hemorrhoids; K29.70 Gastritis, unspecified, without bleeding
CPT/HCPCS: 36430; 80053; 80069; 81001; 82728; 83540; 83550; 83690; 83735; 85014; 85018; 85025; 85027; 85610; 85730; 86850; 86900; 86901; 86920; 88305; 88312; 96374; C9113; J7030; J7050; P9016

== ENCOUNTER 2018-04-03 08:19 | Inpatient (IN) ==
[2018-04-03] MEDS ORDERED: Chlorhexidine Gluconate 2% 1 Pack (2 Cloths) TOPICAL ONE (09:30)
[2018-04-03] MEDS ORDERED: Sodium Chlor 0.9% Inj 500 ML IV.CONT ONE (09:30)
[2018-04-03] MEDS ORDERED: Metoprolol Tartrate 25 MG Tablet PO ONE (09:30)
[2018-04-03] MEDS ORDERED: Bupivacaine Liposomal PF 1.3% Inj 20 ML Vial ONE (09:36)
[2018-04-03 10:00] LABS: Albumin 3.4 g/dL (3.4-5.0); Anion Gap 9 meq/L (5-15); Aspartate Aminotransferase 15 U/L (15-37); Blood Urea Nitrogen 18 mg/dL (7-18); Calcium 9.2 mg/dL (8.5-10.1); Carbon Dioxide 26.4 meq/L (21.0-32.0); Chloride 106 meq/L (98-107); Glomerular Filtration Rate 82 mL/min (>89); Potassium 3.9 meq/L (3.5-5.1); Sodium 141 meq/L (136-145)
[2018-04-03] MEDS ORDERED: ceFAZolin 1 GM Premix Inj 1 GM/50 ML PIGGYBACK IV.SIG ONE (10:00)
[2018-04-03] MEDS ORDERED: Vancomycin Inj 1,000 MG in Sodium Chlor 0.9% Inj 250 ML IV.SIG ONE (10:00)
[2018-04-03] MEDS ORDERED: FLUCONAZOLE 200 MG IV.SIG ONE (10:00)
[2018-04-03 10:01] LABS: Alanine Aminotransferase 16 U/L (12-78)
[2018-04-03 10:03] LABS: Alkaline Phosphatase 63 U/L (45-117); Total Protein 7.6 g/dL (6.4-8.2)
[2018-04-03] MEDS ORDERED: Bupivacaine/Epinephrine Inj 0.25% 50 ML Vial ONE (10:18)
[2018-04-03 10:25] LABS: Baso # (Auto) 0.1 th/mm3 (0.0-0.2); Baso % (Auto) 0.7 % (0.0-2.0); Eos # (Auto) 0.2 th/mm3 (0.0-0.4); Hemoglobin 12.9 gm/dL (13.0-17.0); Lymph # (Auto) 3.1 th/mm3 (1.0-4.8); Lymph % (Auto) 41.9 % (9.0-44.0); Mean Corpuscular HGB Conc 33.9 % (32.0-36.0); Mean Corpuscular Hemoglobin 28.5 pg (27.0-34.0); Mean Platelet Volume 7.9 fL (7.0-11.0); Mono # (Auto) 0.5 th/mm3 (0.0-0.9); Mono % (Auto) 6.9 % (0.0-8.0); Neut # (Auto) 3.5 th/mm3 (1.8-7.7); Neut % (Auto) 47.5 % (16.0-70.0); Platelet Count 219 th/mm3 (150-450); Red Blood Count 4.52 mil/mm3 (4.50-5.90); Red Cell Distribution Width 16.7 % (11.6-17.2); White Blood Count 7.4 th/mm3 (4.0-11.0)
--- NOTE | 2018-04-03 13:34 | P.OP ---
- Preoperative Diagnosis (1) Gastric ulcer - Postoperative Diagnosis (1) Gastric ulcer Date of procedure: 04/03/18 Procedure: Laparoscopic partial gastrectomy Surgeon: Prakash Metcalf MD Cellophaner: Homero Rubio MD Estimated blood loss (mL): 5 IV fluids (mL): 1,500 Pathology: other (Lesser curve of stomach fundus) Operation and Findings: Dr. Rubio was present throughout the entirety of the procedure. His presence was required for retraction, exposure and resection of the stomach. He participated in firing the stapler multiple times while the undersigned manipulated the stomach for optimal angle. Patient was taken to the operating room and placed on the operating table in the supine position. After an adequate level of general endotracheal anesthesia was achieved the abdomen was prepped and draped. Time-out was taken , confirming the correct patient, site, and procedure to be performed. The skin and subcutaneous tissue was infiltrated with local anesthetic and a 5 mm trocar was placed under direct visualization just superior to the umbilicus utilizing the laparoscope. The peritoneal cavity was entered uneventfully and the abdomen was insufflated. A 5 mm 30 degree laparoscope was utilized to visualize the upper abdomen. A 5 mm trocar was placed to the right of the falciform ligament and entered the abdominal cavity under direct vision uneventfully and one was placed in the right mid abdomen. This mid abdominal 5 mm trocar was used to place a angie flex retractor and elevate the left lateral lobe of the liver. A fourth 5 mm trocar was placed in the left subcostal region and entered the abdominal cavity under direct vision uneventfully. The harmonic scalpel was then used to create a window in the gastrohepatic ligament and when this had been completed the [place] stapler was utilized with multiple firings to remove the lesser curvature of the stomach. This required upsizing the right upper quadrant and left upper quadrant trocars to 12 mm trocars in order to allow for utilization of the stapler and to remove the specimen. There did not appear to be any adenopathy nearby. The ulcer felt soft and did not have a suspicious appearance. This lesser curve of the stomach, including a good portion of the fundus was resected with the staplers while a 36 [place] bougie dilator had been placed into the stomach. This would minimize risk for making the stomach too small or causing critical narrowing. At the completion of the resection, the stomach specimen was placed into an Endo Catch bag and removed via the left upper quadrant 12 mm trocar site. The specimen was passed off the table and Dr. Rubio went to the pathology department to review the specimen with the pathologist under frozen section. This demonstrated no evidence of suspicious cells and appeared to be a benign ulcer. Given these findings, the procedure was terminated and after reexamining the staple line, and nasogastric tube was placed and threaded around the greater curve of the stomach to keep it decompressed. The trocars were removed under direct vision and the angie flex retractor removed as well. The fascia was closed at the 2 upsized trocar sites with 0 Vicryl suture in both a simple interrupted and [id number] fashion. Sponge and needle counts were reported to be correct. The skin was closed at all trocar sites with 4-0 Vicryl in an interrupted buried fashion and the wounds were dressed with Steri-Strips. The patient was extubated and taken back to the recovery room in stable condition; he tolerated the procedure well.
[2018-04-03] MEDS ORDERED: Naloxone Inj 0.4 MG/ML Vial IV.PUSH PRN (13:35)
[2018-04-03] MEDS ORDERED: Bisacodyl 10 MG Supp RECTAL PRN (13:35)
[2018-04-03] MEDS ORDERED: Post-op Orders (for Pharmacy) OTHER ONE (13:35)
[2018-04-03] MEDS ORDERED: Morphine Inj 4 MG/ML Vial IV.PUSH PRN (13:35)
[2018-04-03] MEDS ORDERED: Promethazine 25 MG Supp RECTAL PRN (13:35)
[2018-04-03] MEDS ORDERED: fentaNYL Citrate Inj 100 MCG/2 ML Ampul ONE (13:37)
[2018-04-03] MEDS ORDERED: *morphine SULFATE 10 MG/ML PERIprocedure ONLY ONE (13:46)
[2018-04-03] MEDS: Pantoprazole Inj 40 MG Vial IV.PUSH SCH (14:25)
[2018-04-03] MEDS: Morphine Sulfate Inj 2 MG/ML Vial IV.PUSH PRN (17:08)
[2018-04-03] MEDS: Senna/Docusate Sodium 8.6/50 MG Tablet PO SCH (21:14)
[2018-04-04] MEDS: Morphine Sulfate Inj 2 MG/ML Vial IV.PUSH PRN ×3 (03:43→17:01)
[2018-04-04 07:34] LABS: Calcium 8.9 mg/dL (8.5-10.1); Carbon Dioxide 28.3 meq/L (21.0-32.0); Potassium 3.7 meq/L (3.5-5.1)
[2018-04-04] MEDS: ENTACAPONE 200 MG PO SCH ×4 (08:05→18:37)
[2018-04-04] MEDS: Senna/Docusate Sodium 8.6/50 MG Tablet PO SCH ×2 (08:05→21:35)
--- NOTE | 2018-04-04 10:29 | P.PNGS ---
Subjective Interval history: Resting in bed Sister at bedside Patient complaints of mild increased pain as well as shoulder pains Physical Exam Vital signs: Vital Signs 04/03/18 13:30 04/03/18 13:45 04/03/18 14:00 Temperature 97.8 F Pulse Rate 72 78 76 Respiratory Rate 16 16 16 Blood Pressure 179/86 H 172/80 H 168/76 H Pulse Oximetry 100 100 98 04/03/18 14:15 04/03/18 14:30 04/03/18 15:09 Temperature Pulse Rate 74 78 Respiratory Rate 16 16 Blood Pressure 165/79 H 162/81 H 184/81 H Pulse Oximetry 99 99 97 04/03/18 15:26 04/03/18 15:51 04/03/18 16:00 Temperature 97.6 F Pulse Rate 82 86 90 Respiratory Rate 18 16 15 Blood Pressure 178/85 H 177/85 H 171/81 H Pulse Oximetry 99 99 99 04/03/18 17:00 04/03/18 17:01 04/03/18 17:10 Temperature Pulse Rate 91 H 92 H Respiratory Rate 9 L 8 L 15 Blood Pressure 193/92 H 178/88 H Pulse Oximetry 98 98 04/03/18 17:29 04/03/18 17:38 04/03/18 18:00 Temperature Pulse Rate 96 H 94 H 96 H Respiratory Rate 13 17 12 Blood Pressure 182/84 H 175/87 H 188/84 H Pulse Oximetry 98 98 98 04/03/18 18:01 04/03/18 19:00 04/03/18 19:04 Temperature Pulse Rate 96 H 100 H 100 H Respiratory Rate 6 L 14 12 Blood Pressure 175/90 H 195/89 H 174/85 H Pulse Oximetry 98 97 97 04/03/18 20:00 04/03/18 20:08 04/03/18 21:00 Temperature 97.9 F Pulse Rate 104 H 103 H 100 H Respiratory Rate 16 17 13 Blood Pressure 179/85 H 176/84 H 176/89 H Pulse Oximetry 95 95 97 04/03/18 21:05 04/03/18 22:00 04/03/18 22:01 Temperature Pulse Rate 99 H 99 H 101 H Respiratory Rate 14 13 18 Blood Pressure 170/87 H 182/95 H 177/92 H Pulse Oximetry 96 96 97 04/03/18 22:55 04/03/18 22:56 04/03/18 23:00 Temperature Pulse Rate 101 H 100 H 102 H Respiratory Rate 19 8 L 8 L Blood Pressure 187/88 H 179/90 H 170/87 H Pulse Oximetry 97 96 96 04/04/18 00:00 04/04/18 00:04 04/04/18 00:30 Temperature 97.7 F Pulse Rate 98 H 101 H 102 H Respiratory Rate 15 19 8 L Blood Pressure 187/94 H 185/95 H 181/89 H Pulse Oximetry 98 98 98 04/04/18 01:00 04/04/18 01:01 04/04/18 01:03 Temperature Pulse Rate 108 H 106 H 105 H Respiratory Rate 13 20 23 Blood Pressure 190/105 H 193/94 H 207/103 H Pulse Oximetry 97 97 97 04/04/18 01:05 04/04/18 02:00 04/04/18 02:12 Temperature Pulse Rate 106 H 105 H 105 H Respiratory Rate 24 15 19 Blood Pressure 174/79 H 174/84 H 167/79 H Pulse Oximetry 98 97 96 04/04/18 03:00 04/04/18 03:49 04/04/18 04:00 Temperature 98.2 F Pulse Rate 100 H 99 H 96 H Respiratory Rate 18 20 9 L Blood Pressure 176/97 H 182/80 H 154/79 H Pulse Oximetry 97 98 97 04/04/18 05:00 04/04/18 05:51 04/04/18 06:00 Temperature Pulse Rate 98 H 91 H Respiratory Rate 16 12 15 Blood Pressure 170/88 H 192/88 H Pulse Oximetry 97 97 04/04/18 06:02 04/04/18 06:04 04/04/18 06:07 Temperature Pulse Rate 92 H 90 89 Respiratory Rate 15 15 16 Blood Pressure 198/146 H 199/100 H 191/96 H Pulse Oximetry 98 97 97 04/04/18 06:12 04/04/18 07:00 04/04/18 07:03 Temperature Pulse Rate 88 90 88 Respiratory Rate 13 14 14 Blood Pressure 176/90 H 207/95 H 210/87 H Pulse Oximetry 97 97 97 04/04/18 07:04 04/04/18 07:10 04/04/18 08:00 Temperature 98.2 F Pulse Rate 89 91 H 86 Respiratory Rate 12 14 14 Blood Pressure 207/93 H 185/89 H 189/93 H Pulse Oximetry 96 97 98 04/04/18 08:12 04/04/18 09:00 04/04/18 09:06 Temperature Pulse Rate 90 90 Respiratory Rate 18 14 14 Blood Pressure 171/132 H 178/87 H Pulse Oximetry 95 97 04/04/18 10:00 Temperature Pulse Rate 94 H Respiratory Rate Blood Pressure Pulse Oximetry Intake & Output 04/03/18 04/04/18 04/04/18 18:59 06:59 18:59 Intake Total 1500 / 1500 1000 / 1000 Output Total 540 / 540 2090 / 2090 Balance 960 / 960 -1090 / -1090 Weight 80.3 kg 72 kg Intake: IV 1000 / 1000 LR 1000 mL Inj 1,000 ML @ 100 1000 / 1000 mls/hr IV.CONT .Q10H [facility] Rx#: [id number] Anesthesia Amount 1500 / 1500 Output: Urine 225 / 225 Estimated Blood Loss 5 / 5 Urine Amount (Catheter) 300 / 300 1650 / 1650 Indwelling Urethral Catheter 300 / 300 1650 / 1650 Gastric Drainage 440 / 440 Right Nare Nasogastric Tube 440 / 440 Other: Date of Last Bowel Movement 04/02/18 04/02/18 04/02/18 # Bowel Movements 0 0 Weight On Admission 72.5 kg Narrative: Alert and awake Abd: soft; tender incisions c/d/i; mildly tender to palpation - Urinary Catheter Management Indwelling Urethral Catheter Cath placed during this visit: no Results - Labs 04/03/18 09:50 04/04/18 06:11 Laboratory Results - last 24 hr 04/03/18 04/03/18 04/04/18 09:50 15:34 06:11 WBC 7.4 RBC 4.52 Hgb 12.9 L Hct 38.0 L MCV 84.0 MCH 28.5 MCHC 33.9 RDW 16.7 Plt Count 219 MPV 7.9 Neut % (Auto) 47.5 Lymph % (Auto) 41.9 [place] % (Auto) 6.9 Eos % (Auto) 3.0 Baso % (Auto) 0.7 Neut # (Auto) 3.5 Lymph # (Auto) 3.1 [place] # (Auto) 0.5 Eos # (Auto) 0.2 Baso # (Auto) 0.1 WBC Differential . Differential Comment Auto diff final Sodium 142 Potassium 3.7 Chloride 106 Carbon Dioxide 28.3 Anion Gap 8 BUN 14 Creatinine 0.97 Estimated GFR 76 L Random Glucose 109 H Calcium 8.9 Nasal Screen MRSA (PCR) Mrsa detected Assessment and Plan - Assessment (1) Gastric ulcer Code(s): K25.9 - Gastric ulcer, unspecified as acute or chronic, without hemorrhage or perforation Status: Acute Plan: 72 year old male POD1 laparoscopic partial gastrectomy -NGT out overnight; okay to leave out for now -Continue clear liquids -IVF -Added Ofirmev for pain -OOB; PT consulted -Transfer to
[2018-04-04] MEDS: Enoxaparin Inj 40 MG/0.4 ML Syringe SQ SCH (12:16)
[2018-04-04] MEDS: Pantoprazole Inj 40 MG Vial IV.PUSH SCH (13:35)
--- NOTE | 2018-04-04 15:24 | P.CONIM ---
History of Present Illness Reason for Consult: Opinion and recommendations of treatment patient's history of Parkinson hypertension-resume home antihypertensives. Primary Care Provider: No Primary Care Physician History of Present Illness: 72-year-old white male with a history of gastric ulcer with a previous history of H. pylori infection underwent a laparoscopic partial gastrectomy with general surgery Dr. Metcalf. Currently, patient is postoperative day #1 in the intensive surgical unit and reports pain is overall controlled. NG tube came out and he had not had any further nausea and vomiting. He claims he is passing some gas. He is going to try some clear liquids. His sister who is at bedside assisted me in his past medical history. Apparently he is currently bedbound and chair bound and is a long-term resident at a local [facility]. He does have a history of Parkinson's, glaucoma, and hypertension. Review of Systems Constitutional: Reports as per HPI and Denies headache(s) Eyes: Denies blurry vision, Denies change in vision and Denies eye pain Ears, Nose, Mouth, and Throat: Denies abnormal hearing, Denies headache(s), Denies mouth pain, Denies nasal congestion, Denies neck pain and Denies sore throat Cardiovascular: Denies chest pain, Denies pedal edema, Denies palpitations and Denies dyspnea Respiratory: Denies cough and Denies dyspnea Gastrointestinal: Denies abdominal pain, Denies constipation, Denies loose stools, Denies nausea and Denies vomiting Musculoskeletal: Denies back pain, Reports myalgias, Reports arthralgias, Reports muscle weakness, Denies neck pain, Denies numbness and Reports stiffness Comments: Tremors at times Skin/Breast: Denies new lesions and Denies rash Neurologic: Denies abnormal hearing, Reports abnormal movements, Reports abnormal speech, Reports abnormal gait, Denies headache(s), Reports lack of coordination, Denies focal weakness, Denies memory loss and Denies numbness Comments: Wheelchair-bound Psychiatric: Denies anxiety, Denies depression and Denies memory loss Endocrine: Denies cold intolerance, Denies heat intolerance and Denies palpitations Hematologic/Lymphatic: Denies easy bleeding and Denies easy bruising [facility] Medical History Medical History History of MRSA infection (Resolved ~04/03/18) Anemia (Chronic) BPH (benign prostatic hyperplasia) (Chronic) Constipation (Chronic) Dorsalgia (Chronic) Falls (Chronic) GERD (gastroesophageal reflux disease) (Chronic) Glaucoma (Chronic) H/O endoscopy (Chronic) Hyperlipemia (Chronic) Hypertension (Chronic) Muscle weakness (generalized) (Chronic) Normal colonoscopy (Chronic) Parkinson disease (Chronic) Restless leg syndrome (Chronic) Slurred speech (Chronic) Speech abnormality (Chronic) Symbolic dysfunction (Chronic) Ulcer (Chronic) Unsteady gait (Chronic) GI bleed (Resolved) Helicobacter pylori (H. pylori) (Resolved) Dyspepsia (Inactive) Surgical History Surgical History Hx of appendectomy (Chronic) Previous back surgery (Chronic) S/P deep brain stimulator placement (Chronic) Family History Family History Father Heart disease Social History Social History Substance History: No History of Abuse Second Hand Smoke Exposure: No Smoking Status: Never smoker How Often Do You Have a Drink Containing Alcohol: Never Recent Travel in [facility] within the Last 8 Weeks: No Recent Out of Country Travel within the Last 8 Weeks: No Immunization History Tetanus Immunization: Unsure Hx Influenza Vaccine This Season: Yes Medications and Allergies Allergies Allergy/AdvReac Type Severity Reaction Status Date / Time No Known Allergies Allergy Verified 04/03/18 09:12 Home Medications Medication Instructions Recorded Confirmed Type amantadine HCl 100 mg PO DAILY 11/16/17 04/03/18 History artificial tears(hypromellose) 1 drp OPHTHALMIC (EYE) QID 11/16/17 04/03/18 History bisacodyl 10 mg VT DAILY PRN 11/16/17 04/03/18 History brimonidine 1 drp EACH EYE BID 11/16/17 04/03/18 History calcium carbonate 500 mg PO TID PRN 11/16/17 04/03/18 History carbidopa-levodopa 1 tab PO QID 11/16/17 04/03/18 History cetirizine 10 mg PO DAILY PRN 11/16/17 04/03/18 History docusate sodium 100 mg PO BID 11/16/17 04/03/18 History entacapone 200 mg PO TID 11/16/17 04/03/18 History ferrous sulfate 325 mg PO BID 11/16/17 04/03/18 History gabapentin 300 mg PO Q8H 11/16/17 04/03/18 History linaclotide [Linzess] 72 mcg PO DAILY 11/16/17 04/03/18 History magnesium hydroxide [Milk of 30 ml PO DAILY PRN 11/16/17 04/03/18 History Magnesia] multivitamin [Multiple Vitamins] 1 tab PO DAILY 11/16/17 04/03/18 History omeprazole 20 mg PO BID 11/16/17 04/03/18 History polyethylene glycol 3350 [Miralax] 1 100 g PO BID 11/16/17 04/04/18 History ropinirole 4 mg PO HS 11/16/17 04/03/18 History sertraline 50 mg PO DAILY 11/16/17 04/03/18 History sodium phosphates [Fleet Enema] 59 ml VT DAILY PRN 11/16/17 04/03/18 History tamsulosin [Flomax] 0.8 mg PO DAILY 11/16/17 04/03/18 History Active Medications: Active Medications Al Hydroxide/Mg Hydroxide (Milk Of Magnesia Liq) 30 ml PO Q12H PRN PRN Reason: Mild Constipation Bisacodyl (Dulcolax Supp) 10 mg RECTAL DAILY PRN PRN Reason: SEVERE CONSITIPATION Carbidopa/Levodopa (Sinemet 25/250 Mg) 1 tab PO QID [facility] Last Admin: 04/04/18 12:16 Dose: 1 tab Diphenhydramine HCl (Benadryl Inj) 25 mg IV.PUSH Q6H PRN PRN Reason: ITCHING Enalaprilat (Vasotec Inj) 1.25 mg IV.PUSH Q6H PRN PRN Reason: SBP>180/DBP>90 Last Admin: 04/04/18 08:05 Dose: 1.25 mg Enoxaparin Sodium (Lovenox Inj) 40 mg SQ Q24H [facility] Last Admin: 04/04/18 12:16 Dose: 40 mg Lactated Ringer's (Lr 1000 Ml Inj) 1,000 mls @ 100 mls/hr IV.CONT .Q10H [facility] Last Admin: 04/04/18 13:37 Dose: 100 mls/hr Acetaminophen (Ofirmev Inj) 1,000 mg in 100 mls @ 400 mls/hr IV.SIG Q6H [facility] Stop: 04/05/18 04:44 Last Infusion: 04/04/18 10:47 Dose: Infused Lactulose (Lactulose Liq) 30 ml PO DAILY PRN PRN Reason: SEVERE CONSITIPATION Morphine Sulfate (Morphine Inj) 2 mg IV.PUSH Q3H PRN PRN Reason: PAIN 3-5; IF UABLE TO TAKE PO Last Admin: 04/04/18 08:10 Dose: 2 mg Morphine Sulfate (Morphine Inj) 4 mg IV.PUSH Q3H PRN PRN Reason: BREAKTHROUGH PAIN Naloxone HCl (Narcan Inj) 0.4 mg IV.PUSH UNSCH PRN PRN Reason: SEE LABEL COMMENTS Ondansetron HCl (Zofran Odt) 4 mg PO Q6H PRN PRN Reason: NAUSEA OR VOMITING Ondansetron HCl (Zofran Inj) 4 mg IV.PUSH Q6H PRN PRN Reason: NAUSEA OR VOMITING Pantoprazole Sodium (Protonix Inj) 40 mg IV.PUSH Q24H [facility] Last Admin: 04/04/18 13:35 Dose: 40 mg Pt Own Entacapone (200 Mg Tablet) 1 each PO TID [facility] Last Admin: 04/04/18 12:29 Dose: Not Given Promethazine HCl (Phenergan) 25 mg PO Q6H PRN PRN Reason: NAUSEA OR VOMITING Promethazine HCl (Phenergan Supp) 25 mg RECTAL Q6H PRN PRN Reason: NAUSEA OR VOMITING Senna/Docusate Sodium (Melissa-Colace) 1 tab PO BID [facility] Last Admin: 04/04/18 08:05 Dose: 1 tab Sennosides (Senokot) 17.2 mg PO Q12H PRN PRN Reason: Moderate Constipation Physical Exam Vital signs: Last Vital Signs Temp 98.9 F 04/04/18 12:00 Pulse 83 04/04/18 12:00 Resp 16 04/04/18 12:00 BP 154/78 H 04/04/18 12:00 Pulse Ox 97 04/04/18 12:00 Intake & Output 04/02/18 04/03/18 04/04/18 04/05/18 06:59 06:59 06:59 06:59 Intake Total 2500 / 2500 1550 / 1550 Output Total 2630 / 2630 950 / 950 Balance -130 / -130 600 / 600 Weight 72 kg Narrative: GENERAL: Well-nourished elderly male laying in bed in no acute distress SKIN: Warm and dry. HEAD: Atraumatic. Normocephalic. EYES: Pupils equal and round. No scleral icterus. No injection or drainage. ENT: No nasal bleeding or discharge. Mucous membranes pink and moist. NECK: Trachea midline. No JVD. CARDIOVASCULAR: Regular rate and rhythm. RESPIRATORY: No accessory muscle use. Clear to auscultation. Breath sounds equal bilaterally. GASTROINTESTINAL: Abdomen soft, non-tender, nondistended. Bandage clean dry and intact, few bowel sounds MUSCULOSKELETAL: Extremities without clubbing, cyanosis, or edema. No obvious deformities. NEUROLOGICAL: Awake and alert to person place and time. No obvious cranial nerve deficits. Generalized weakness bilateral upper and lower extremities, slurred and abnormal speech Results Labs CBC & Chem 7: 04/03/18 09:50 04/04/18 06:11 Assessment and Plan (1) Gastric ulcer: Code(s): K25.9 - Gastric ulcer, unspecified as acute or chronic, without hemorrhage or perforation Status: Acute Plan 72-year-old white male Status post operative day #1 laparoscopic partial gastrectomy with a history of gastric ulcer-continue postoperative care, pain control, physical therapy per general surgery IV fluids for supportive care Clear liquids PPI History of Parkinson's diseaseresume carbidopa levodopa, entacapone History of restless leg syndromeropinirole History of BPHresume Flomax History of CAD, resume brimonidine 1 drop to each eye twice daily DVT prophylaxisSCDs, no anticoagulation due to previous bleeding gastric ulcer Thank you for this consultation. _ (1) Gastric ulcer Qualifiers: Gastric ulcer chronicity: Gastric ulcer complication status:
[2018-04-04] MEDS: Gabapentin 300 MG Capsule PO SCH ×2 (17:01→21:34)
[2018-04-04] MEDS ORDERED: ENTACAPONE 200 MG PO SCH (18:00)
[2018-04-04] MEDS: Artificial Tears Opth Drops 15 ML Bottle EACH EYE SCH ×2 (18:36→21:35)
[2018-04-04] MEDS: Brimonidine 0.2% Opth Drops 5 ML Bottle EACH EYE SCH (21:35)
[2018-04-05] MEDS: Morphine Sulfate Inj 2 MG/ML Vial IV.PUSH PRN ×2 (05:22→20:07)
[2018-04-05] MEDS: Gabapentin 300 MG Capsule PO SCH ×4 (05:24→23:09)
--- NOTE | 2018-04-05 10:14 | P.PNGS ---
Subjective Interval history: Resting in bed Sister at bedside No issues overnight Pain better today Physical Exam Vital signs: Vital Signs 04/04/18 10:47 04/04/18 11:00 04/04/18 12:00 Temperature 98.9 F Pulse Rate 81 83 Respiratory Rate 18 16 16 Blood Pressure 154/82 H 154/78 H Pulse Oximetry 97 97 04/04/18 16:00 04/04/18 20:00 04/05/18 00:00 Temperature 98.9 F 98.4 F 98.2 F Pulse Rate 89 86 81 Respiratory Rate 18 22 22 Blood Pressure 172/87 H 150/79 H 157/83 H Pulse Oximetry 97 98 94 L 04/05/18 04:00 04/05/18 08:00 Temperature 97.2 F L 98.3 F Pulse Rate 73 78 Respiratory Rate 20 18 Blood Pressure 176/92 H 159/88 H Pulse Oximetry 98 96 Intake & Output 04/04/18 04/05/18 04/05/18 18:59 06:59 18:59 Intake Total 1650 / 1650 2800 / 2800 Output Total 950 / 950 Balance 700 / 700 2800 / 2800 Weight 72 kg Intake: IV 1200 / 1200 2800 / 2800 LR 1000 mL Inj 1,000 ML @ 100 1000 / 1000 1000 / 1000 mls/hr IV.CONT .Q10H [facility] Rx#: [id number] Ofirmev Inj 1,000 mg In 100 ml 200 / 200 200 / 200 @ 400 mls/hr IV.SIG Q6H [facility] Rx# :[id number] Oral 450 / 450 Output: Urine Amount (Catheter) 950 / 950 Indwelling Urethral Catheter 950 / 950 Other: # Incontinent Voids 2 Date of Last Bowel Movement 04/02/18 04/02/18 Narrative: Alert and awake Abd: soft; incision sites c/d/i - Urinary Catheter Management Indwelling Urethral Catheter Cath placed during this visit: yes, but has since been removed by the nurse Reason for continuing: Decision to DC catheter Removal date: 04/04/18 Removal time: 14:22 Results - Labs 04/03/18 09:50 04/04/18 06:11 Assessment and Plan - Assessment (1) Gastric ulcer Code(s): K25.9 - Gastric ulcer, unspecified as acute or chronic, without hemorrhage or perforation Status: Acute Plan: 72 year old male POD2 laparoscopic partial gastrectomy -Continue clear liquids -IVF -Added Ofirmev for pain -OOB; PT consulted
[2018-04-05] MEDS: ENTACAPONE 200 MG PO SCH ×3 (10:17→17:36)
[2018-04-05] MEDS: Amantadine 100 MG Capsule PO SCH (10:18)
[2018-04-05] MEDS: Senna/Docusate Sodium 8.6/50 MG Tablet PO SCH ×2 (10:18→20:06)
[2018-04-05] MEDS: Sertraline 50 MG Tablet PO SCH (10:18)
[2018-04-05] MEDS: Artificial Tears Opth Drops 15 ML Bottle EACH EYE SCH ×4 (10:19→20:16)
[2018-04-05] MEDS: Brimonidine 0.2% Opth Drops 5 ML Bottle EACH EYE SCH ×2 (10:19→20:16)
--- NOTE | 2018-04-05 10:45 | P.PN ---
Subjective Interval history: The patient is seen wheelchair he appears not acute distress at this time. Sister is at bedside. Patient says the pain is fairly controlled at this time. Did not have a bowel movement. Feels weak. Feels short of breath. At times says he has nonproductive cough. Will order incentive spirometry and DuoNeb's as needed Physical Exam Vital signs: Vital Signs 04/04/18 10:47 04/04/18 11:00 04/04/18 12:00 Temperature 98.9 F Pulse Rate 81 83 Respiratory Rate 18 16 16 Blood Pressure 154/82 H 154/78 H Pulse Oximetry 97 97 04/04/18 16:00 04/04/18 20:00 04/05/18 00:00 Temperature 98.9 F 98.4 F 98.2 F Pulse Rate 89 86 81 Respiratory Rate 18 22 22 Blood Pressure 172/87 H 150/79 H 157/83 H Pulse Oximetry 97 98 94 L 04/05/18 04:00 04/05/18 08:00 Temperature 97.2 F L 98.3 F Pulse Rate 73 78 Respiratory Rate 20 18 Blood Pressure 176/92 H 159/88 H Pulse Oximetry 98 96 Intake & Output 04/04/18 04/05/18 04/05/18 18:59 06:59 18:59 Intake Total 1650 / 1650 2800 / 2800 Output Total 950 / 950 Balance 700 / 700 2800 / 2800 Weight 72 kg Intake: IV 1200 / 1200 2800 / 2800 LR 1000 mL Inj 1,000 ML @ 100 1000 / 1000 1000 / 1000 mls/hr IV.CONT .Q10H [facility] Rx#: [id number] Ofirmev Inj 1,000 mg In 100 ml 200 / 200 200 / 200 @ 400 mls/hr IV.SIG Q6H [facility] Rx# :[id number] Oral 450 / 450 Output: Urine Amount (Catheter) 950 / 950 Indwelling Urethral Catheter 950 / 950 Other: # Incontinent Voids 2 Date of Last Bowel Movement 04/02/18 04/02/18 Narrative: GENERAL: Well-nourished elderly male laying in bed in no acute distress CARDIOVASCULAR: Regular rate and rhythm. RESPIRATORY: No accessory muscle use. Clear to auscultation. Breath sounds equal bilaterally. GASTROINTESTINAL: Abdomen soft, + BS, tenderness at the surgical site, nondistended. Bandage clean dry and intact. MUSCULOSKELETAL: Extremities without clubbing, cyanosis, or edema. No obvious deformities. NEUROLOGICAL: Awake and alert to person place and time. No obvious cranial nerve deficits. Generalized weakness bilateral upper and lower extremities, slurred and abnormal speech - Urinary Catheter Management Indwelling Urethral Catheter Cath placed during this visit: yes, but has since been removed by the nurse Reason for continuing: Decision to DC catheter Removal date: 04/04/18 Removal time: 14:22 Results - Labs CBC & Chem 7: 04/03/18 09:50 04/04/18 06:11 Assessment and Plan - Assessment (1) Gastric ulcer Code(s): K25.9 - Gastric ulcer, unspecified as acute or chronic, without hemorrhage or perforation Status: Acute - Plan 72-year-old white male Status post operative laparoscopic partial gastrectomy on 04/04/18 with a history of gastric ulcer-continue postoperative care, pain control, physical therapy per general surgery IV fluids for supportive care Clear liquids, advance per surgery team recommendations PPI With shortness of breath however saturating well. Add duo nebs and incentive spirometry. History of Parkinson's diseaseresume carbidopa levodopa, entacapone History of restless leg syndromeropinirole History of BPHresume Flomax History of CAD, resume brimonidine 1 drop to each eye twice daily DVT prophylaxisSCDs, no anticoagulation due to previous bleeding gastric ulcer DC when cleared by surgeon BP is into a higher site likely 2/2 pain . Otherwise medically appears fairly stable
[2018-04-05] MEDS: Pantoprazole Inj 40 MG Vial IV.PUSH SCH (13:15)
[2018-04-05] MEDS: Enoxaparin Inj 40 MG/0.4 ML Syringe SQ SCH (13:15)
[2018-04-06] MEDS: Gabapentin 300 MG Capsule PO SCH ×3 (05:39→20:59)
[2018-04-06] MEDS: Morphine Sulfate Inj 2 MG/ML Vial IV.PUSH PRN (05:46)
[2018-04-06 09:13] LABS: Baso # (Auto) 0.1 th/mm3 (0.0-0.2); Baso % (Auto) 0.8 % (0.0-2.0); Eos # (Auto) 0.3 th/mm3 (0.0-0.4); Eos % (Auto) 3.9 % (0.0-4.0); Hematocrit 36.9 % (39.0-51.0); Hemoglobin 12.5 gm/dL (13.0-17.0); Lymph # (Auto) 2.2 th/mm3 (1.0-4.8); Lymph % (Auto) 30.5 % (9.0-44.0); Mean Corpuscular HGB Conc 33.9 % (32.0-36.0); Mean Corpuscular Hemoglobin 28.3 pg (27.0-34.0); Mean Corpuscular Volume 83.3 fL (80.0-100.0); Mean Platelet Volume 8.1 fL (7.0-11.0); Mono # (Auto) 0.7 th/mm3 (0.0-0.9); Neut # (Auto) 4.1 th/mm3 (1.8-7.7); Neut % (Auto) 55.8 % (16.0-70.0); Platelet Count 228 th/mm3 (150-450); Red Blood Count 4.43 mil/mm3 (4.50-5.90); Red Cell Distribution Width 16.1 % (11.6-17.2); White Blood Count 7.3 th/mm3 (4.0-11.0)
[2018-04-06 09:42] LABS: Anion Gap 9 meq/L (5-15); Blood Urea Nitrogen 11 mg/dL (7-18); Calcium 8.9 mg/dL (8.5-10.1); Carbon Dioxide 25.4 meq/L (21.0-32.0); Chloride 107 meq/L (98-107); Glomerular Filtration Rate Greater Than 89 mL/min (>89); Glucose,Random 105 mg/dL (74-106); Potassium 3.3 meq/L (3.5-5.1); Sodium 141 meq/L (136-145)
[2018-04-06] MEDS: ENTACAPONE 200 MG PO SCH ×3 (10:01→17:52)
[2018-04-06] MEDS: Senna/Docusate Sodium 8.6/50 MG Tablet PO SCH ×2 (10:02→20:59)
[2018-04-06] MEDS: Amantadine 100 MG Capsule PO SCH (10:02)
[2018-04-06] MEDS: Sertraline 50 MG Tablet PO SCH (10:03)
[2018-04-06] MEDS: Brimonidine 0.2% Opth Drops 5 ML Bottle EACH EYE SCH ×2 (10:06→21:00)
[2018-04-06] MEDS: Artificial Tears Opth Drops 15 ML Bottle EACH EYE SCH ×4 (10:06→21:00)
[2018-04-06] MEDS: Enoxaparin Inj 40 MG/0.4 ML Syringe SQ SCH (13:51)
[2018-04-06] MEDS: Pantoprazole Inj 40 MG Vial IV.PUSH SCH (13:51)
--- NOTE | 2018-04-06 15:28 | P.PN ---
Subjective Interval history: In bed. No n/v/d/c. Denies chest pain or sob. No abd pain . Breathing well. Encouraged IS. Physical Exam Vital signs: Vital Signs 04/05/18 16:00 04/05/18 20:00 04/05/18 20:37 Temperature 98.0 F 98.2 F Pulse Rate 67 73 Respiratory Rate 18 17 18 Blood Pressure 159/82 H 165/88 H Pulse Oximetry 96 94 L 04/06/18 00:00 04/06/18 04:00 04/06/18 08:00 Temperature 98.1 F 98.2 F 97.9 F Pulse Rate 69 66 73 Respiratory Rate 18 18 18 Blood Pressure 145/85 H 186/91 H 199/96 H Pulse Oximetry 96 96 95 04/06/18 09:00 04/06/18 12:00 Temperature 97.2 F L Pulse Rate 76 66 Respiratory Rate 17 Blood Pressure 171/84 H Pulse Oximetry 93 L Intake & Output 04/05/18 04/06/18 04/06/18 18:59 06:59 18:59 Intake Total 1720 / 1720 1480 / 1480 Output Total 1000 / 1000 1200 / 1200 Balance 720 / 720 280 / 280 Weight 72 kg Intake: IV 1000 / 1000 1000 / 1000 LR 1000 mL Inj 1,000 ML @ 50 1000 / 1000 1000 / 1000 mls/hr IV.CONT .Q20H [facility] Rx#: [id number] Oral 720 / 720 480 / 480 Output: Urine 1000 / 1000 1200 / 1200 Other: # Voids 3 Date of Last Bowel Movement 04/02/18 Narrative: GENERAL: Well-nourished elderly male laying in bed in no acute distress CARDIOVASCULAR: Regular rate and rhythm. RESPIRATORY: No accessory muscle use. Clear to auscultation. Breath sounds equal bilaterally. GASTROINTESTINAL: Abdomen soft, + BS, tenderness at the surgical site, nondistended. Bandage clean dry and intact. MUSCULOSKELETAL: Extremities without clubbing, cyanosis, or edema. No obvious deformities. NEUROLOGICAL: Awake and alert to person place and time. No obvious cranial nerve deficits. Generalized weakness bilateral upper and lower extremities, slurred and abnormal speech - Urinary Catheter Management Indwelling Urethral Catheter Cath placed during this visit: yes, but has since been removed by the nurse Reason for continuing: Decision to DC catheter Removal date: 04/04/18 Removal time: 14:22 Results - Labs CBC & Chem 7: 04/06/18 07:35 04/06/18 07:35 Laboratory Results - last 24 hr 04/06/18 04/06/18 07:35 07:35 WBC 7.3 RBC 4.43 L Hgb 12.5 L Hct 36.9 L MCV 83.3 MCH 28.3 MCHC 33.9 RDW 16.1 Plt Count 228 MPV 8.1 Neut % (Auto) 55.8 Lymph % (Auto) 30.5 [place] % (Auto) 9.0 H Eos % (Auto) 3.9 Baso % (Auto) 0.8 Neut # (Auto) 4.1 Lymph # (Auto) 2.2 [place] # (Auto) 0.7 Eos # (Auto) 0.3 Baso # (Auto) 0.1 WBC Differential . Differential Comment Auto diff final Sodium 141 Potassium 3.3 L Chloride 107 Carbon Dioxide 25.4 Anion Gap 9 BUN 11 Creatinine 0.80 Estimated GFR Greater than 89 Random Glucose 105 Calcium 8.9 Assessment and Plan - Assessment (1) Gastric ulcer Code(s): K25.9 - Gastric ulcer, unspecified as acute or chronic, without hemorrhage or perforation Status: Acute - Plan 72-year-old white male Status post operative laparoscopic partial gastrectomy on 04/04/18 with a history of gastric ulcer-continue postoperative care, pain control, physical therapy per general surgery IV fluids for supportive care Clear liquids, advance per surgery team recommendations PPI Shortness of breath improved, he is saturating well on room air. Duo nebs as need, encourage incentive spirometry. History of Parkinson's diseaseresume carbidopa levodopa, entacapone History of restless leg syndromeropinirole History of BPHresume Flomax History of CAD, resume brimonidine 1 drop to each eye twice daily DVT prophylaxisSCDs, no anticoagulation due to previous bleeding gastric ulcer DC when cleared by surgeon Medically appears fairly stable
--- NOTE | 2018-04-06 15:58 | P.PNGS ---
Subjective Patient reports: no new complaints, feels better Interval history: DAILY PROGRESS NOTE FOR SURGICAL ATTENDING, DR. DAI KELLEY Resting in bed No complaints says he is tired Physical Exam Vital signs: Vital Signs 04/05/18 16:00 04/05/18 20:00 04/05/18 20:37 Temperature 98.0 F 98.2 F Pulse Rate 67 73 Respiratory Rate 18 17 18 Blood Pressure 159/82 H 165/88 H Pulse Oximetry 96 94 L 04/06/18 00:00 04/06/18 04:00 04/06/18 08:00 Temperature 98.1 F 98.2 F 97.9 F Pulse Rate 69 66 73 Respiratory Rate 18 18 18 Blood Pressure 145/85 H 186/91 H 199/96 H Pulse Oximetry 96 96 95 04/06/18 09:00 04/06/18 12:00 Temperature 97.2 F L Pulse Rate 76 66 Respiratory Rate 17 Blood Pressure 171/84 H Pulse Oximetry 93 L Intake & Output 04/05/18 04/06/18 04/06/18 18:59 06:59 18:59 Intake Total 1720 / 1720 1480 / 1480 Output Total 1000 / 1000 1200 / 1200 Balance 720 / 720 280 / 280 Weight 72 kg Intake: IV 1000 / 1000 1000 / 1000 LR 1000 mL Inj 1,000 ML @ 50 1000 / 1000 1000 / 1000 mls/hr IV.CONT .Q20H [facility] Rx#: [id number] Oral 720 / 720 480 / 480 Output: Urine 1000 / 1000 1200 / 1200 Other: # Voids 3 Date of Last Bowel Movement 04/02/18 Narrative: Lying in bed No distress Port sites healing well Normal postop pain - Urinary Catheter Management Indwelling Urethral Catheter Cath placed during this visit: yes, but has since been removed by the nurse Reason for continuing: Decision to DC catheter Removal date: 04/04/18 Removal time: 14:22 Results - Labs 04/06/18 07:35 04/06/18 07:35 Laboratory Results - last 24 hr 04/06/18 04/06/18 07:35 07:35 WBC 7.3 RBC 4.43 L Hgb 12.5 L Hct 36.9 L MCV 83.3 MCH 28.3 MCHC 33.9 RDW 16.1 Plt Count 228 MPV 8.1 Neut % (Auto) 55.8 Lymph % (Auto) 30.5 [place] % (Auto) 9.0 H Eos % (Auto) 3.9 Baso % (Auto) 0.8 Neut # (Auto) 4.1 Lymph # (Auto) 2.2 [place] # (Auto) 0.7 Eos # (Auto) 0.3 Baso # (Auto) 0.1 WBC Differential . Differential Comment Auto diff final Sodium 141 Potassium 3.3 L Chloride 107 Carbon Dioxide 25.4 Anion Gap 9 BUN 11 Creatinine 0.80 Estimated GFR Greater than 89 Random Glucose 105 Calcium 8.9 Assessment and Plan - Assessment (1) Gastric ulcer Code(s): K25.9 - Gastric ulcer, unspecified as acute or chronic, without hemorrhage or perforation Status: Acute Plan: 72 year old male PO laparoscopic partial gastrectomy -Continue clear liquids -IVF -Added Ofirmev for pain -OOB; PT consulted - Attending Attestation NOTE FOR SURGICAL ATTENDING, DR. DAI KELLEY I attest that I had a [id number] encounter with the patient on the same day, and personally performed and documented my assessment and findings in the medical record. The following services were provided during this hospital visit: Chart data review, vital sign assessments/reviewing monitor data Review of consultations notes if present. Medication orders/review and/or management Ordering and/or reviewing lab tests Ordering and/or interpreting/reviewing x-rays and/or diagnostic studies Care of the patient and discussion of the patient with the care team Documentation time To help prompt me to consider important information that might be impacting today's encounter and assessment, Information from prior notes written by myself or my colleagues may have been "brought forward/copy and pasted" into today's note.
[2018-04-07] MEDS: Gabapentin 300 MG Capsule PO SCH ×3 (05:12→23:05)
[2018-04-07] MEDS: Senna/Docusate Sodium 8.6/50 MG Tablet PO SCH ×2 (09:06→20:05)
[2018-04-07] MEDS: Sertraline 50 MG Tablet PO SCH (09:06)
[2018-04-07] MEDS: Amantadine 100 MG Capsule PO SCH (09:06)
[2018-04-07] MEDS: ENTACAPONE 200 MG PO SCH ×3 (09:06→17:49)
[2018-04-07] MEDS: Brimonidine 0.2% Opth Drops 5 ML Bottle EACH EYE SCH ×2 (09:07→20:05)
[2018-04-07] MEDS: Artificial Tears Opth Drops 15 ML Bottle EACH EYE SCH ×4 (09:07→20:05)
--- NOTE | 2018-04-07 10:45 | P.PN ---
Subjective Interval history: In bed appears sleepy. No sob, sattign well on room air. No n/v/d/c. Physical Exam Vital signs: Vital Signs 04/06/18 12:00 04/06/18 16:00 04/06/18 20:00 Temperature 97.2 F L 97.6 F 97.4 F L Pulse Rate 66 63 73 Respiratory Rate 17 18 20 Blood Pressure 171/84 H 186/92 H 157/79 H Pulse Oximetry 93 L 92 L 95 04/07/18 00:00 04/07/18 04:00 04/07/18 08:00 Temperature 97.3 F L 97.6 F 98.7 F Pulse Rate 73 65 75 Respiratory Rate 20 20 20 Blood Pressure 160/78 H 176/88 H 187/93 H Pulse Oximetry 95 94 L 95 Intake & Output 04/06/18 04/07/18 04/07/18 18:59 06:59 18:59 Intake Total 500 / 500 500 / 500 Output Total 1000 / 1000 850 / 850 Balance -500 / -500 -350 / -350 Weight 72.1 kg Intake: IV 500 / 500 500 / 500 LR 1000 mL Inj 1,000 ML @ 50 500 / 500 500 / 500 mls/hr IV.CONT .Q20H [facility] Rx#: [id number] Oral 0 / 0 Output: Urine 850 / 850 Urine Amount (Catheter) 1000 / 1000 Indwelling Urethral Catheter 1000 / 1000 Narrative: GENERAL: Well-nourished elderly male laying in bed in no acute distress CARDIOVASCULAR: Regular rate and rhythm. RESPIRATORY: No accessory muscle use. Clear to auscultation. Breath sounds equal bilaterally. GASTROINTESTINAL: Abdomen soft, + BS, tenderness at the surgical site, nondistended. Bandage clean dry and intact. MUSCULOSKELETAL: Extremities without clubbing, cyanosis, or edema. No obvious deformities. NEUROLOGICAL: Awake and alert to person place and time. No obvious cranial nerve deficits. Generalized weakness bilateral upper and lower extremities, slurred and abnormal speech - Urinary Catheter Management Indwelling Urethral Catheter Cath placed during this visit: yes, but has since been removed by the nurse Reason for continuing: Decision to DC catheter Removal date: 04/04/18 Removal time: 14:22 Results - Labs CBC & Chem 7: 04/06/18 07:35 04/06/18 07:35 Assessment and Plan - Assessment (1) Gastric ulcer Code(s): K25.9 - Gastric ulcer, unspecified as acute or chronic, without hemorrhage or perforation Status: Acute - Plan 72-year-old white male Status post operative laparoscopic partial gastrectomy on 04/04/18 with a history of gastric ulcer-continue postoperative care, pain control, physical therapy per general surgery IV fluids for supportive care Clear liquids, advance per surgery team recommendations PPI Shortness of breath improved, he is saturating well on room air. Duo nebs as need, encourage incentive spirometry. History of Parkinson's diseaseresume carbidopa levodopa, entacapone History of restless leg syndromeropinirole History of BPHresume Flomax History of CAD, resume brimonidine 1 drop to each eye twice daily DVT prophylaxisSCDs, no anticoagulation due to previous bleeding gastric ulcer DC when cleared by surgeon Medically appears fairly stable
[2018-04-07] MEDS: Enoxaparin Inj 40 MG/0.4 ML Syringe SQ SCH (11:56)
[2018-04-07] MEDS: Pantoprazole Inj 40 MG Vial IV.PUSH SCH (13:28)
--- NOTE | 2018-04-07 18:56 | P.PN ---
Subjective Interval history: No problems; tolerating full liquids well. Minimal pain Physical Exam Vital signs: Vital Signs 04/06/18 20:00 04/07/18 00:00 04/07/18 04:00 Temperature 97.4 F L 97.3 F L 97.6 F Pulse Rate 73 73 65 Respiratory Rate 20 20 20 Blood Pressure 157/79 H 160/78 H 176/88 H Pulse Oximetry 95 95 94 L 04/07/18 08:00 04/07/18 09:00 04/07/18 12:00 Temperature 98.7 F 98.5 F Pulse Rate 75 72 71 Respiratory Rate 20 20 Blood Pressure 187/93 H 152/85 H Pulse Oximetry 95 97 04/07/18 16:00 Temperature 97.5 F L Pulse Rate 67 Respiratory Rate 20 Blood Pressure 154/82 H Pulse Oximetry 97 Intake & Output 04/06/18 04/07/18 04/07/18 18:59 06:59 18:59 Intake Total 500 / 500 500 / 500 1720 / 1720 Output Total 1000 / 1000 850 / 850 1200 / 1200 Balance -500 / -500 -350 / -350 520 / 520 Weight 72.1 kg Intake: IV 500 / 500 500 / 500 1000 / 1000 LR 1000 mL Inj 1,000 ML @ 50 500 / 500 500 / 500 1000 / 1000 mls/hr IV.CONT .Q20H [facility] Rx#: [id number] Oral 0 / 0 720 / 720 Output: Urine 850 / 850 1200 / 1200 Urine Amount (Catheter) 1000 / 1000 Indwelling Urethral Catheter 1000 / 1000 Other: # Incontinent Voids 2 Date of Last Bowel Movement 04/06/18 - Constitutional no acute distress - Routine HEENT Exam Head: Present: normocephalic, atraumatic - Routine Respiratory Exam Present: CTA bilaterally - Routine Cardiovascular Exam Present: RRR - Routine Abdominal Exam Present: soft, wound (Clean and dry) - Urinary Catheter Management Indwelling Urethral Catheter Cath placed during this visit: yes, but has since been removed by the nurse Reason for continuing: Decision to DC catheter Removal date: 04/04/18 Removal time: 14:22 Results - Labs CBC & Chem 7: 04/06/18 07:35 04/06/18 07:35 Assessment and Plan - Assessment (1) Gastric ulcer Code(s): K25.9 - Gastric ulcer, unspecified as acute or chronic, without hemorrhage or perforation Status: Acute - Plan POD #4 laparoscopic partial gastric resection Tolerating full liquids well; will advance to a soft diet tomorrow. Will likely go back to his living arrangements on Monday 04/09 or Tuesday 04/10. Discussed Condition With: Patient Nurse Sister, who is in the room - Attending Attestation I attest that I had a [id number] encounter with the patient on the same day, and personally performed and documented my assessment and findings in the medical record. The following services were provided during this hospital visit: Chart data review, vital sign assessments/reviewing monitor data Review of consultation notes if present Medication orders/review and/or management Ordering and/or reviewing lab tests Ordering and/or interpreting/reviewing x-rays and/or diagnostic studies Care of the patient and discussion of the patient with the care team Documentation time To help prompt me to consider important information that might be impacting today's encounter and assessment, Information from prior notes written by myself or my colleagues may have been "brought forward/copy and pasted" into today's note.
[2018-04-08] MEDS: Gabapentin 300 MG Capsule PO SCH ×3 (05:20→21:48)
[2018-04-08] MEDS: Artificial Tears Opth Drops 15 ML Bottle EACH EYE SCH ×4 (09:13→21:48)
[2018-04-08] MEDS: Brimonidine 0.2% Opth Drops 5 ML Bottle EACH EYE SCH ×2 (09:13→21:48)
[2018-04-08] MEDS: Senna/Docusate Sodium 8.6/50 MG Tablet PO SCH ×2 (09:14→21:48)
[2018-04-08] MEDS: Sertraline 50 MG Tablet PO SCH (09:14)
[2018-04-08] MEDS: Amantadine 100 MG Capsule PO SCH (09:14)
[2018-04-08] MEDS: ENTACAPONE 200 MG PO SCH ×3 (09:22→18:22)
--- NOTE | 2018-04-08 09:28 | P.PN ---
Subjective Interval history: With worsening Parkinsonism. Unsure who is his neurology Dr , will consult office professionals neurology. The patient is with jerking movement of his upper extremities. He was not able to sleep much. Diet is advanced per surgery tolerates fairly well./No n/v/d/c. Physical Exam Vital signs: Vital Signs 04/07/18 12:00 04/07/18 16:00 04/07/18 20:00 Temperature 98.5 F 97.5 F L 97.4 F L Pulse Rate 71 67 75 Respiratory Rate 20 20 17 Blood Pressure 152/85 H 154/82 H 155/81 H Pulse Oximetry 97 97 95 04/08/18 00:00 04/08/18 04:00 Temperature 97.7 F 97.9 F Pulse Rate 58 L 86 Respiratory Rate 16 18 Blood Pressure 160/75 H 177/94 H Pulse Oximetry 94 L 95 Intake & Output 04/07/18 04/08/18 04/08/18 18:59 06:59 18:59 Intake Total 1720 / 1720 Output Total 1200 / 1200 550 / 550 Balance 520 / 520 -550 / -550 Intake: IV 1000 / 1000 LR 1000 mL Inj 1,000 ML @ 50 1000 / 1000 mls/hr IV.CONT .Q20H [facility] Rx#: [id number] Oral 720 / 720 Output: Urine 1200 / 1200 550 / 550 Other: # Incontinent Voids 2 Date of Last Bowel Movement 04/06/18 Narrative: GENERAL: Well-nourished elderly male laying in bed in no acute distress CARDIOVASCULAR: Regular rate and rhythm. RESPIRATORY: No accessory muscle use. Clear to auscultation. Breath sounds equal bilaterally. GASTROINTESTINAL: Abdomen soft, + BS, tenderness at the surgical site, nondistended. Bandage clean dry and intact. MUSCULOSKELETAL: Extremities without clubbing, cyanosis, or edema. No obvious deformities. NEUROLOGICAL: Awake and alert to person place and time. No obvious cranial nerve deficits. Generalized weakness bilateral upper and lower extremities, slurred and abnormal speech - Urinary Catheter Management Indwelling Urethral Catheter Cath placed during this visit: yes, but has since been removed by the nurse Reason for continuing: Decision to DC catheter Removal date: 04/04/18 Removal time: 14:22 Results - Labs CBC & Chem 7: 04/06/18 07:35 04/06/18 07:35 Assessment and Plan - Assessment (1) Gastric ulcer Code(s): K25.9 - Gastric ulcer, unspecified as acute or chronic, without hemorrhage or perforation Status: Acute - Plan 72-year-old white male Status post operative laparoscopic partial gastrectomy on 04/04/18 with a history of gastric ulcer-continue postoperative care, pain control, physical therapy per general surgery IV fluids for supportive care DC if takes adequate PO Advance diet per surgery team recommendations PPI Shortness of breath improved, he is saturating well on room air. Duo nebs as need, encourage incentive spirometry. History of Parkinson's diseaseresumeed carbidopa levodopa, entacapone Noted on 04/08 with worsening Parkinsonism, will consult neurology History of restless leg syndromeropinirole History of BPHresume Flomax History of CAD, resume brimonidine 1 drop to each eye twice daily DVT prophylaxisSCDs, no anticoagulation due to previous bleeding gastric ulcer DC when cleared by surgeon Medically appears fairly stable Plan to DC tomorrow or Wed per surgeon
[2018-04-08] MEDS: Enoxaparin Inj 40 MG/0.4 ML Syringe SQ SCH (12:59)
[2018-04-08] MEDS: Pantoprazole Inj 40 MG Vial IV.PUSH SCH (14:49)
--- NOTE | 2018-04-08 15:16 | P.PNGS ---
Subjective Interval history: Working with PT Hungry Physical Exam Vital signs: Vital Signs 04/07/18 16:00 04/07/18 20:00 04/08/18 00:00 Temperature 97.5 F L 97.4 F L 97.7 F Pulse Rate 67 75 58 L Respiratory Rate 20 17 16 Blood Pressure 154/82 H 155/81 H 160/75 H Pulse Oximetry 97 95 94 L 04/08/18 04:00 Temperature 97.9 F Pulse Rate 86 Respiratory Rate 18 Blood Pressure 177/94 H Pulse Oximetry 95 Intake & Output 04/07/18 04/08/18 04/08/18 18:59 06:59 18:59 Intake Total 1720 / 1720 1000 / 1000 Output Total 1200 / 1200 550 / 550 Balance 520 / 520 -550 / -550 1000 / 1000 Intake: IV 1000 / 1000 1000 / 1000 LR 1000 mL Inj 1,000 ML @ 50 1000 / 1000 1000 / 1000 mls/hr IV.CONT .Q20H [facility] Rx#: [id number] Oral 720 / 720 Output: Urine 1200 / 1200 550 / 550 Other: # Incontinent Voids 2 Date of Last Bowel Movement 04/06/18 Narrative: Alert and awake Abd: soft; incisions c/d/i non distended - Urinary Catheter Management Indwelling Urethral Catheter Cath placed during this visit: yes, but has since been removed by the nurse Reason for continuing: Decision to DC catheter Removal date: 04/04/18 Removal time: 14:22 Results - Labs 04/06/18 07:35 04/06/18 07:35 Assessment and Plan - Assessment (1) Gastric ulcer Code(s): K25.9 - Gastric ulcer, unspecified as acute or chronic, without hemorrhage or perforation Status: Acute Plan: 72 year old male PO laparoscopic partial gastrectomy -Advance to soft diet -DC IVF -No pain on exam -OOB; PT following -Plan to return to rehab tomorrow
[2018-04-09] MEDS: Gabapentin 300 MG Capsule PO SCH (06:06)
[2018-04-09 07:19] LABS: Anion Gap 7 meq/L (5-15); Blood Urea Nitrogen 10 mg/dL (7-18); Calcium 8.6 mg/dL (8.5-10.1); Carbon Dioxide 26.6 meq/L (21.0-32.0); Chloride 108 meq/L (98-107); Glomerular Filtration Rate Greater Than 89 mL/min (>89); Glucose,Random 104 mg/dL (74-106); Potassium 3.7 meq/L (3.5-5.1); Sodium 142 meq/L (136-145)
[2018-04-09 07:25] LABS: Baso # (Auto) 0.1 th/mm3 (0.0-0.2); Baso % (Auto) 0.9 % (0.0-2.0); Eos # (Auto) 0.4 th/mm3 (0.0-0.4); Eos % (Auto) 5.3 % (0.0-4.0); Hematocrit 39.2 % (39.0-51.0); Hemoglobin 13.5 gm/dL (13.0-17.0); Lymph # (Auto) 2.6 th/mm3 (1.0-4.8); Lymph % (Auto) 31.3 % (9.0-44.0); Mean Corpuscular HGB Conc 34.4 % (32.0-36.0); Mean Corpuscular Hemoglobin 28.4 pg (27.0-34.0); Mean Corpuscular Volume 82.4 fL (80.0-100.0); Mean Platelet Volume 8.6 fL (7.0-11.0); Mono # (Auto) 0.8 th/mm3 (0.0-0.9); Mono % (Auto) 9.2 % (0.0-8.0); Neut # (Auto) 4.4 th/mm3 (1.8-7.7); Neut % (Auto) 53.3 % (16.0-70.0); Platelet Count 241 th/mm3 (150-450); Red Blood Count 4.75 mil/mm3 (4.50-5.90); Red Cell Distribution Width 16.1 % (11.6-17.2); White Blood Count 8.3 th/mm3 (4.0-11.0)
--- NOTE | 2018-04-09 07:57 | MB ---
cc: Idalmis Malagon MD DATE: 04/08/2018 REASON FOR CONSULTATION: Parkinson disease, possibly worsening. HISTORY OF PRESENT ILLNESS: This is a 72-year-old male with a history of gastric ulcer, underwent laparoscopic partial gastrectomy with general surgery, is admitted on 04/03/2018. Currently, he is lying in bed, somewhat confused, unable to talk to me or give me any history. Apparently, he is currently bed bound and chair bound and a long-term resident in a local [facility] per chart, probably more due to his Parkinson disease. PAST MEDICAL HISTORY: Parkinson's disease, BPH, falls, hyperlipidemia, hypertension, generalized weakness, restless leg syndrome, recent ulcer with H. pylori. SURGICAL HISTORY: He has a deep brain stimulator, which I am not sure if it is still functioning. He has a history of back surgery, appendectomy. SUBSTANCE ABUSE: None reported. HOME MEDICATIONS: 1. Amantadine 100 mg daily, which per chart states that he is on. 2. Sinemet. I am not sure of the dose, but is 4 times a day. They have him on 25/250 q.i.d. 3. He is also on gabapentin 300 mg every 8 hours. 4. Per chart, it stated that he was on Comtan as well, but he is not receiving that here. 5. He is also on Requip 4 mg at bedtime. PHYSICAL EXAMINATION: GENERAL: This is an elderly man lying in bed in no distress. Mouth open. Mumbles, nonverbal mostly. VITAL SIGNS: Temperature is 97.9, pulse 86, respiratory rate 18, blood pressure 177/94. NEUROLOGIC: He is awake, alert. He is very mask-like, very bradykinetic, severely hypophonic. Mouth open. Tone is not extremely rigid. There is no abnormal movement of his upper extremities as far as a resting tremor currently. There is no dyskinesia. He withdraws to painful stimuli. Does not follow commands for movement, as well as strength testing. LABORATORY DATA: Reviewed from 04/06/2018: Hemoglobin 12.5. Chemistries from 04/06/2018: Potassium 3.3. LFTs were normal. IMPRESSION: Advanced Parkinson disease. Part of the worsening may be due to lack of appropriate p.o. intake. He seems to be deconditioned at baseline, where it states that he is bed bound or wheelchair bound. At this point, we will continue his Requip, continue his Sinemet 25/250 but they need to be given on a different regimen. They should be given meals: Before breakfast, before lunch, before dinner and at bedtime. Supplement Comtan 200 mg q.i.d. to his regimen. Blood pressure does not seem to be low, and continue his amantadine 100 mg daily. He will need extensive physical therapy. At some point, he needs to follow up with his neurologist to see if that deep brain stimulator functions, if it can be adjusted, if the battery life is still valuable, etc. I am not sure who his neurologist is. If he does not have one, certainly he can come to our office. We will gladly interrogate his deep brain stimulator; however, at this point in time, continue current medicines, add the Comtan, if available. If not, maybe a family member can bring it in, as well as maintaining him on the Sinemet before meals and at bedtime. MD MAGDA Salamanca/jeni , 04:08 PM , 04:18 PM
--- NOTE | 2018-04-09 08:56 | P.DS ---
Date of admission: 04/03/18 13:35 Primary care physician: No Primary Care Physician Brief History from admission: 72-year-old white male with a history of gastric ulcer with a previous history of H. pylori infection underwent a laparoscopic partial gastrectomy with general surgery Dr. Metcalf. Currently, patient is postoperative day #1 in the intensive surgical unit and reports pain is overall controlled. NG tube came out and he had not had any further nausea and vomiting. He claims he is passing some gas. He is going to try some clear liquids. His sister who is at bedside assisted me in his past medical history. Apparently he is currently bedbound and chair bound and is a long-term resident at a local assisted. He does have a history of Parkinson's, glaucoma, and hypertension. DS: Diagnosis - Discharge Diagnosis (1) Gastric ulcer Status: Acute (2) Parkinson disease Status: Acute DS: Summary Hospital Course: 72-year-old white male Status post operative laparoscopic partial gastrectomy on 04/04/18 with a history of gastric ulcer-continue postoperative care, pain control, physical therapy per general surgery IV fluids for supportive care DC if takes adequate PO Advance diet per surgery team recommendations PPI Shortness of breath improved, he is saturating well on room air. Duo nebs as need, encourage incentive spirometry. History of Parkinson's diseaseresumeed carbidopa levodopa, entacapone Noted on 04/08 with worsening Parkinsonism, consult neurology, recommends ertacapone. Patient to bring medication from home. Also to sheck his nerve stimulator as OP Tolerated diet well. History of restless leg syndromeropinirole History of BPHresume Flomax History of CAD, resume brimonidine 1 drop to each eye twice daily DVT prophylaxisSCDs, no anticoagulation due to previous bleeding gastric ulcer Medically appears fairly stable Improved DC in stable condition to follow up as OP with PCP and consultants. - Time Spent with Patient Total time spent providing and/or coordinating discharge services: Greater than 30 minutes - Quality: VTE Deep Vein Thrombosis/Pulmonary Embolism Present on Admission: No Exam Vital signs: Vital Signs 04/08/18 16:00 04/08/18 20:00 04/09/18 00:00 Temperature 98.4 F 98.1 F 98.0 F Pulse Rate 73 69 64 Respiratory Rate Blood Pressure 153/67 H 150/83 H 150/80 H Pulse Oximetry 93 L 94 L 94 L 04/09/18 04:00 Temperature 97.6 F Pulse Rate 68 Respiratory Rate 17 Blood Pressure 168/90 H Pulse Oximetry 94 L Intake & Output 04/08/18 04/09/18 04/09/18 18:59 06:59 18:59 Intake Total 1150 / 1150 180 / 180 Output Total 1800 / 1800 Balance 1150 / 1150 -1620 / -1620 Weight 72 kg Intake: IV 1150 / 1150 LR 1000 mL Inj 1,000 ML @ 50 1150 / 1150 mls/hr IV.CONT .Q20H [facility] Rx#: [id number] Oral 180 / 180 Output: Urine 1800 / 1800 Other: Date of Last Bowel Movement 04/06/18 Narrative: GENERAL: Well-nourished elderly male laying in bed in no acute distress CARDIOVASCULAR: Regular rate and rhythm. RESPIRATORY: No accessory muscle use. Clear to auscultation. Breath sounds equal bilaterally. GASTROINTESTINAL: Abdomen soft, + BS, tenderness at the surgical site, nondistended. Bandage clean dry and intact. MUSCULOSKELETAL: Extremities without clubbing, cyanosis, or edema. No obvious deformities. NEUROLOGICAL: Awake and alert to person place and time. No obvious cranial nerve deficits. Generalized weakness bilateral upper and lower extremities, slurred and abnormal speech Results Procedures completed during hospitalization: Status post operative laparoscopic partial gastrectomy on 04/04/18 Labs on day of discharge: Labs from last 24 hours 04/09/18 04/09/18 05:23 05:23 WBC 8.3 RBC 4.75 Hgb 13.5 Hct 39.2 MCV 82.4 MCH 28.4 MCHC 34.4 RDW 16.1 Plt Count 241 MPV 8.6 Neut % (Auto) 53.3 Lymph % (Auto) 31.3 [place] % (Auto) 9.2 H Eos % (Auto) 5.3 H Baso % (Auto) 0.9 Neut # (Auto) 4.4 Lymph # (Auto) 2.6 [place] # (Auto) 0.8 Eos # (Auto) 0.4 Baso # (Auto) 0.1 WBC Differential . Differential Comment Auto diff final Sodium 142 Potassium 3.7 Chloride 108 H Carbon Dioxide 26.6 Anion Gap 7 BUN 10 Creatinine 0.79 Estimated GFR Greater than 89 Random Glucose 104 Calcium 8.6 Discharge Plan - Discharge Disposition Patient Disposition: 01 Discharge Home - Discharge Condition Condition: Stable - Discharge Order Discharge Orders: Discharge Order (Routine); Ordered 04/08/18 Ordered By: Kayleen Cody - Discharge Details Anticipated Discharge Date: 04/09/18 - Physicians Team Primary Care Provider: Primary Care Dolores Anthony Attending Provider: Prkaash Metcalf Other Providers: [facility],Agency ; Kayleen Cody MD ; [facility]ency ; Idalmis Malagon MD - Rxs /Orders / Referrals /Forms Prescriptions: Continue amantadine HCl 100 mg Tablet 100 mg PO DAILY artificial tears(hypromellose) 0.3 % Drops 1 drp OPHTHALMIC (EYE) QID bisacodyl 10 mg Suppository 10 mg [place] DAILY PRN (Reason: Constipation) brimonidine 0.2 % Drops 1 drp EACH EYE BID calcium carbonate 500 mg calcium (1,250 mg) Tablet 500 mg PO TID PRN (Reason: Acid Reflux) carbidopa-levodopa 25-250 mg Tablet 1 tab PO QID cetirizine 10 mg Tablet 10 mg PO DAILY PRN (Reason: ITCHING) docusate sodium 100 mg Tablet 100 mg PO BID entacapone 200 mg Tablet 200 mg PO TID ferrous sulfate 325 mg (65 mg iron) Tablet 325 mg PO BID gabapentin 300 mg Capsule 300 mg PO Q8H linaclotide [Linzess] 72 mcg Capsule 72 mcg PO DAILY magnesium hydroxide [Milk of Magnesia] 400 mg/5 mL Suspension 30 ml PO DAILY PRN (Reason: Constipation) multivitamin [Multiple Vitamins] Tablet 1 tab PO DAILY omeprazole 20 mg Capsule,Delayed Release(Dr/Ec) 20 mg PO BID polyethylene glycol 3350 [Miralax] 17 gram Powder In Packet 1 100 g PO BID ropinirole 4 mg Tablet 4 mg PO HS sertraline 50 mg Tablet 50 mg PO DAILY sodium phosphates [Fleet Enema] 19-7 gram/118 mL Enema 59 ml [place] DAILY PRN (Reason: Constipation) tamsulosin [Flomax] 0.4 mg Capsule,Extended Release 24hr 0.8 mg PO DAILY Referrals: Idalmis Malagon MD [Physician] - See Instructions ( Please call the physician's office to book the appointment to be seen within [3 - 5 days ].) Prakash Metcalf MD [GENERAL SURGERY] - 04/22/18 1:40 pm ( Please call the physician's office to book the appointment to be seen within [1-2 weeks ]. Appointment scheduled for April 22, at 1:40pm) Primary Care Dolores Anthony [Primary Care Provider] - See Instructions ( Please call the physician's office to book the appointment to be seen within [2-3 days]. Please call to schedule follow appointment with your primary care doctor or you can follow up with [facility] [phone] [facility] [place] *[facility] [employer] offers same day APPT. Call the morning you would like to be seen Office opens at 8:00am ) - Discharge Instructions Patient Printed Instructions: Laparoscopic Appendectomy (DC), Steristrips (ED)
[2018-04-09] MEDS: Amantadine 100 MG Capsule PO SCH (09:12)
[2018-04-09] MEDS: ENTACAPONE 200 MG PO SCH ×2 (09:12→12:30)
[2018-04-09] MEDS: Senna/Docusate Sodium 8.6/50 MG Tablet PO SCH (09:12)
[2018-04-09] MEDS: Sertraline 50 MG Tablet PO SCH (09:12)
[2018-04-09] MEDS: Brimonidine 0.2% Opth Drops 5 ML Bottle EACH EYE SCH (09:13)
[2018-04-09] MEDS: Artificial Tears Opth Drops 15 ML Bottle EACH EYE SCH ×2 (09:13→12:32)
[2018-04-09 09:32] VITALS: RESP 20
[2018-04-09 12:25] VITALS: BP 110/59; PULSE 73; TEMP 97.2; O2SAT 96
[2018-04-09] MEDS: Enoxaparin Inj 40 MG/0.4 ML Syringe SQ SCH (12:31)
--- NOTE | 2018-04-09 13:00 | P.DS ---
Date of admission: 04/03/18 13:35 Primary care physician: No Primary Care Physician Attending physician on discharge: Prakash Metcalf Anticipated date of discharge: 04/09/18 Brief History from admission: 72 year old male s/p laparoscopic partial gastrectomy DS: Diagnosis - Discharge Diagnosis (1) Gastric ulcer Status: Acute DS: Summary Hospital Course: This is a 72 year old male s/p laparoscopic partial gastrectomy. The patient diet was advanced to a soft diet. The patient did not require pain medications. He returned back to his prior living arrangements prior to surgery. - Time Spent with Patient Total time spent providing and/or coordinating discharge services: Less than 30 minutes - Quality: VTE Deep Vein Thrombosis/Pulmonary Embolism Present on Admission: No Exam Vital signs: Vital Signs 04/08/18 16:00 04/08/18 20:00 04/09/18 00:00 Temperature 98.4 F 98.1 F 98.0 F Pulse Rate 73 69 64 Respiratory Rate 17 18 17 Blood Pressure 153/67 H 150/83 H 150/80 H Pulse Oximetry 93 L 94 L 94 L 04/09/18 04:00 04/09/18 08:25 04/09/18 11:55 Temperature 97.6 F 98.1 F 97.2 F L Pulse Rate 68 66 73 Respiratory Rate 17 20 20 Blood Pressure 168/90 H 174/81 H 110/59 L Pulse Oximetry 94 L 95 96 Intake & Output 04/08/18 04/09/18 04/09/18 18:59 06:59 18:59 Intake Total 1150 / 1150 180 / 180 Output Total 1800 / 1800 Balance 1150 / 1150 -1620 / -1620 -1 / -1 Weight 72 kg Intake: IV 1150 / 1150 LR 1000 mL Inj 1,000 ML @ 50 1150 / 1150 mls/hr IV.CONT .Q20H [facility] Rx#: [id number] Oral 180 / 180 Output: Urine 1800 / 1800 Stool Other: Date of Last Bowel Movement 04/06/18 04/09/18 Narrative: Alert and awake Abd: soft; non tender; lap sites c/d/i with Steri strips in place Results Procedures completed during hospitalization: Status post operative laparoscopic partial gastrectomy on 04/04/18 Labs on day of discharge: Labs from last 24 hours 04/09/18 04/09/18 05:23 05:23 WBC 8.3 RBC 4.75 Hgb 13.5 Hct 39.2 MCV 82.4 MCH 28.4 MCHC 34.4 RDW 16.1 Plt Count 241 MPV 8.6 Neut % (Auto) 53.3 Lymph % (Auto) 31.3 [place] % (Auto) 9.2 H Eos % (Auto) 5.3 H Baso % (Auto) 0.9 Neut # (Auto) 4.4 Lymph # (Auto) 2.6 [place] # (Auto) 0.8 Eos # (Auto) 0.4 Baso # (Auto) 0.1 WBC Differential . Differential Comment Auto diff final Sodium 142 Potassium 3.7 Chloride 108 H Carbon Dioxide 26.6 Anion Gap 7 BUN 10 Creatinine 0.79 Estimated GFR Greater than 89 Random Glucose 104 Calcium 8.6 Discharge Plan - Discharge Disposition Patient Disposition: 03 Discharge to SNF - Discharge Condition Condition: Stable - Discharge Order Discharge Orders: Discharge Order (Routine); Ordered 04/08/18 Ordered By: Kayleen Cody - Discharge Details Anticipated Discharge Date: 04/09/18 - Physicians Team Primary Care Provider: Primary Care Dolores Anthony Attending Provider: Prakash Metcalf Other Providers: [facility],Agency ; Kayleen Cody MD ; [facility],Agency ; Idalmis Malagon MD - Rxs /Orders / Referrals /Forms Prescriptions: Continue amantadine HCl 100 mg Tablet 100 mg PO DAILY artificial tears(hypromellose) 0.3 % Drops 1 drp OPHTHALMIC (EYE) QID bisacodyl 10 mg Suppository 10 mg [place] DAILY PRN (Reason: Constipation) brimonidine 0.2 % Drops 1 drp EACH EYE BID calcium carbonate 500 mg calcium (1,250 mg) Tablet 500 mg PO TID PRN (Reason: Acid Reflux) carbidopa-levodopa 25-250 mg Tablet 1 tab PO QID cetirizine 10 mg Tablet 10 mg PO DAILY PRN (Reason: ITCHING) docusate sodium 100 mg Tablet 100 mg PO BID entacapone 200 mg Tablet 200 mg PO TID ferrous sulfate 325 mg (65 mg iron) Tablet 325 mg PO BID gabapentin 300 mg Capsule 300 mg PO Q8H linaclotide [Linzess] 72 mcg Capsule 72 mcg PO DAILY magnesium hydroxide [Milk of Magnesia] 400 mg/5 mL Suspension 30 ml PO DAILY PRN (Reason: Constipation) multivitamin [Multiple Vitamins] Tablet 1 tab PO DAILY omeprazole 20 mg Capsule,Delayed Release(Dr/Ec) 20 mg PO BID polyethylene glycol 3350 [Miralax] 17 gram Powder In Packet 1 100 g PO BID ropinirole 4 mg Tablet 4 mg PO HS sertraline 50 mg Tablet 50 mg PO DAILY sodium phosphates [Fleet Enema] 19-7 gram/118 mL Enema 59 ml [place] DAILY PRN (Reason: Constipation) tamsulosin [Flomax] 0.4 mg Capsule,Extended Release 24hr 0.8 mg PO DAILY Referrals: Idalmis Malagon MD [Physician] - See Instructions ( Please call the physician's office to book the appointment to be seen within [3 - 5 days ].) Prakash Metcalf MD [GENERAL SURGERY] - 04/22/18 1:40 pm (Appointment scheduled for April 22 at 1:40pm) Primary Care Dolores Anthony [Primary Care Provider] - See Instructions ( Please call the physician's office to book the appointment to be seen within [2-3 days]. Please call to schedule follow appointment with your primary care doctor or you can follow up with [facility] [phone] [place] [address] *[facility] offers same day APPT. Call the morning you would like to be seen Office opens at 8:00am ) - Discharge Instructions Patient Printed Instructions: Apendicectoma laparoscpica (DC), Steristrips ( ED)
== END 2018-04-09 14:55 ==
LOC: HSDC 08:19 → EDSTATUS 10:30 → HSDI 13:35 → N03 15:08 → N07 04-04 14:36
PROVIDERS: ADMIT Surgery Trauma Surgery; ATTEND Surgery Trauma Surgery
PROC: LAPAPPY (ICD-10-PCS; 2018-04-03 10:31)